=== PATIENT | female | born 1990 | race Caucasian/White ===

== ENCOUNTER 2017-03-11 10:38 | Day surgery (SDC) | payer OTHER ==
[2017-03-11 12:13] VITALS: BMI 19.0
[2017-03-11 13:43] VITALS: TEMP 97.5
[2017-03-11 14:25] VITALS: BP 104/64; PULSE 68
[2017-03-11 15:21] LABS: ALBUMIN 3.9 g/dl (3.4-5.0); BILIRUBIN,DIRECT 0.1 mg/dL (0.0-0.2); BILIRUBIN,TOTAL 0.6 mg/dL (0.2-1.0); TOT PROT 6.9 g/dl (6.4-8.2)
--- NOTE | 2017-03-13 12:10 | PATH ---
Surgical Pathology Report Patient Name: NERISSA HATFIELD [facility]. Rec. #: [id number] /Age/Gender: 1990 (Age: 26) / F Account: [id number] Location: U-ENDOSCOPY Taken: 03/11/2017 Received: 03/12/2017 Reported: 03/13/2017 Physicians: Abdi Gonzalez D.O. Specimen(s) Received A: BX TRANSVERSE B: BX LEFT COLON Clinical History Diarrhea r/o microscopic colitis Final Diagnosis A. COLON, TRANSVERSE, BIOPSY: COLONIC MUCOSA WITH LAMINA PROPRIA EDEMA AND REACTIVE LYMPHOID AGGREGATE. NO EVIDENCE OF ACTIVE INFLAMMATION, SIGINIFICANT ARCHITECTURAL DISTORTION, GRANULOMATA OR DYSPLASIA; NO EVIDENCE OF MICROSCOPIC COLITIS. B. COLON, LEFT, BIOPSY: COLONIC MUCOSA WITH LAMINA PROPRIA EDEMA AND REACTIVE LYMPHOID AGGREGATE. NO EVIDENCE OF ACTIVE INFLAMMATION, SIGINIFICANT ARCHITECTURAL DISTORTION, GRANULOMATA OR DYSPLASIA; NO EVIDENCE OF MICROSCOPIC COLITIS. Electronically Signed Jarrett Virgen M.D. Gross Description A. Received in formalin, labeled "biopsy transverse colon" are 2 doyle, irregular portions of soft tissue averaging 0.1 cm in greatest dimension. The specimens are submitted in toto in one cassette. B. Received in formalin, labeled "biopsy left colon" are 2 doyle, irregular portions of soft tissue averaging 0.2 cm in greatest dimension. The specimens are submitted in toto in one cassette. 03/12/201703/12/2017
[2017-03-13 16:30] LABS: SMOOTH MUSCLE AB 25 Units (0-19)
== END 2017-03-11 14:34 | disposition home or self-care (01) ==
LOC: JASU-ENDO 10:38
PROVIDERS: ATTEND Internal Medicine Gastroenterology
PROC: 0DBL8ZX Excision of Transverse Colon, Via Natural or Artificial Opening Endoscopic, Diagnostic (ICD-10-PCS; principal; 2017-03-11 11:00)
DX: R19.7 Diarrhea, unspecified (principal); K64.8 Other hemorrhoids
CPT/HCPCS: 36415; 80076; 82390; 83516; 84703; 86038; 88305-TC

== ENCOUNTER 2017-04-08 22:28 | Emergency (ER) | payer OTHER ==
[2017-04-08 23:03] VITALS: BP 107/66; PULSE 83; TEMP 98.6; BMI 19.9
== END 2017-04-09 01:15 | disposition left against medical advice (07) ==
LOC: JER 22:28 → SUPCPDRO 22:28 → JER 04-09 01:15
DX: Z53.21 Procedure and treatment not carried out due to patient leaving prior to being seen by health care provider (principal)
CPT/HCPCS: 99281-25

== ENCOUNTER 2017-11-23 09:25 | Inpatient (IN) | payer OTHER ==
[2017-11-23] MEDS: ELECTROLYTE-148 SOLN 1,000 ML IV SCH ×2 (09:45→11:30)
--- NOTE | 2017-11-23 10:23 | HP ---
Past Medical History - Primary Care Physician PCP:: Patricia Amin - Admission Chief Complaint: 27yo P0 @ 38.4 wks with LOF 8:15am today and regular painful contructions, no VB, + FM History of Present Illness: 1. Short cervix during , s/p Betamethasone 09/30/17, s/p Progesterone suppository 2. Medulary sponge kidneys, h/o Kidney stones, none in 3. IBS on meds prior to 4. 2014 D&C for Endometrial polyp 5. 2014 LSC for rupture ovarian cyst 6. h/o Colon polyps 7. Anemia, Vitamin B12 deficiency History Source: Patient Limitations to Obtaining History: No Limitations - Past Medical History Gastrointestinal: Yes: Irritable Bowel Disease, Other (Colon polyps, followed by GI) Renal/: Yes: Renal Calculi Reproductive: Yes: Polycystic Ovary Syndrome, Other (Endometrial polyps Ovarian Cysts Abnormal PAP) ...: 1 ...EDC by Dates: 12/03/17 Additional OB History: Short cervix, s/p Progesterone suppositories and Betamethasone Heme/Onc: Yes: B12 Deficiency - Past Surgical History Past Surgical History: Yes: Cystectomy Hx Myomectomy: No Hx Transabdominal Cerclage: No Additional Surgical History: Polypectomy, D&C - Smoking History Smoking history: Never smoked Have you smoked in the past 12 months: No Aproximately how many cigarettes per day: 0 - Alcohol/Substance Use Hx Alcohol Use: No History of Substance Use: reports: None Home Medications - Allergies Allergies/Adverse Reactions: Allergies Allergy/AdvReac Type Severity Reaction Status Date / Time strawberry Allergy Mild Verified 10/03/17 09:02 milk Allergy Verified 10/03/17 09:02 - Home Medications Home Medications: Ambulatory Orders Albuterol Sulfate Inhaler - [Ventolin HFA Inhaler -] 2 inh PO Q4H PRN 03/11/17 B-12 1 tab PO DAILY 09/02/17 Iron 1 tab PO DAILY 09/02/17 Vitamins (Sjr) - 1 tab PO DAILY 09/02/17 Progesterone, Micronized [Progesterone] 100 mg VG DAILY 10/03/17 Review of Systems - Review of Systems Constitutional: reports: No Symptoms Eyes: reports: No Symptoms HENT: reports: No Symptoms Neck: reports: No Symptoms Cardiovascular: reports: No Symptoms Respiratory: reports: No Symptoms Gastrointestinal: reports: No Symptoms Genitourinary: reports: No Symptoms, Other (Leackage of fluid, contructions) Breasts: reports: No Symptoms Reported Musculoskeletal: reports: No Symptoms Integumentary: reports: No Symptoms Neurological: reports: No Symptoms Endocrine: reports: No Symptoms Hematology/Lymphatic: reports: No Symptoms Psychiatric: reports: No Symptoms Physical Exam - Maternity Constitutional: Yes: Well Nourished Eyes: Yes: WNL HENT: Yes: WNL Neck: Yes: WNL, Supple, Trachea Midline Cardiovascular: Yes: WNL, Regular Rate and Rhythm Lungs: Clear to auscultation Breast(s): Yes: WNL - Abdominal Exam/OB Fundal Height: 38 (EFW 7.5lb) Number of Fetuses: Single Presentation: Vertex Contractions: Yes Regularity: Regular (Q5-6min) Intensity: Mild/Mod Monitor Mode: External Heart Rate (range): 140 Heart Rate Location: Midline Category: I Accelerations: Uniform Decelerations: None - Vaginal Exam/OB Vaginal Bleediing: No Speculum Exam: No (Grosely ruptured, Nitrazine positive) Dilatation (cm): 5-6cm Effacement (%): 100 Amniotic Membrane Status: Ruptured Nitrazine Test: Positive Amniotic Fluid: Yes: Clear Meconium: Light Presentation: Vertex/Position Station: -1 - Physical Exam Musculoskeletal: Yes: WNL Extremities: Yes: WNL Edema: No Integumentary: Yes: WNL Deep Tendon Reflex Grade: Normal +2 ...Motor Strength: WNL Psychiatric: Yes: WNL Assessment/Plan 27yo P0 @ 38.4 wks with PROM in labor Admit to L&D Admit labs GBS negative, no need for prophylaxis Pain management for Epidural MF status reassuring anticipate
[2017-11-23] MEDS ORDERED: FENTANYL/BUPIVACAINE/NS/PF - PCEA - 50 ML DISP.SYRIN EP ONE (10:30)
[2017-11-23 10:55] LABS: BASO % 0.2 % (0-2.0); EOS % 0.3 % (0-4.5); HEMATOCRIT 34.4 % (32.4-45.2); HEMOGLOBIN 11.2 GM/dL (10.7-15.3); LYMPH % 6.8 % (8-40); MCH 29.7 pg (25.7-33.7); MCHC 32.6 g/dl (32.0-36.0); MEAN CELL VOLUME 91.2 fl (80-96); MEAN PLT VOLUME 11.3 fl (7.5-11.1); MONO % 6.1 % (3.8-10.2); NEUT % 86.6 % (42.8-82.8); PLATELET COUNT 118 K/MM3 (134-434); RBC 3.77 M/mm3 (3.60-5.2); RDW 14.3 % (11.6-15.6); WHITE BLOOD COUNT 15.1 K/mm3 (4.0-10.0)
[2017-11-23 11:14] LABS: CALCIUM 8.1 mg/dL (8.5-10.1); CHLORIDE 107 mmol/L (98-107); POTASSIUM 3.6 mmol/L (3.5-5.1); PROTHROMBIN TIME (PATIENT) 11.3 SEC (9.98-11.88); SODIUM 138 mmol/L (136-145)
[2017-11-23 11:17] LABS: ACTIVATED PTT 28.2 SECONDS (26.9-34.4)
[2017-11-23 11:18] LABS: ANION GAP 9 (8-16); BLOOD UREA NITROGEN 6 mg/dL (7-18); CO2 22 mmol/L (21-32); CREATININE 0.4 mg/dL (0.55-1.02); GLUCOSE,RANDOM 73 mg/dL (74-106)
[2017-11-23] MEDS ORDERED: NALOXONE HCL 0.4 MG/ML VIAL IVPUSH PRN (11:23)
--- NOTE | 2017-11-23 11:26 | PN ---
Progress Note, Labor Vaginal Exam #1 Labor Exam Date: 11/23/17 Labor Exam Time: 11:20 Heart Rate (range): 140's +accels, no decells Dilatation: 8 Effacement (%): 100 Amniotic Membrane Status: Ruptured Presentation: Vertex/Position Station: -1 Remarks: 27yo P0 @ 38.4wks in active labor Now s/p Epidural frequent ctx, MF status reassuring continue monitoring progress of labor
[2017-11-23] MEDS ORDERED: FENTANYL/BUPIVACAINE/NS/PF - PCEA - 50 ML DISP.SYRIN EP SCH (11:30)
[2017-11-23 11:49] VITALS: BMI 19.5
[2017-11-23 12:24] LABS: ALBUMIN 2.6 g/dl (3.4-5.0); ALK PHOS 154 U/L (45-117); BILIRUBIN,DIRECT < 0.2 mg/dL (0.0-0.2); BILIRUBIN,TOTAL 0.4 mg/dL (0.2-1.0); SGOT/AST 19 U/L (15-37); SGPT/ALT 17 U/L (12-78); TOT PROT 6.1 g/dl (6.4-8.2)
[2017-11-23] MEDS ORDERED: LIDOCAINE HCL 1% PRESERVATIVE FREE - 30ML VIAL ONE (15:36)
[2017-11-23] MEDS ORDERED: BISACODYL 10 MG SUPP.RECT RC PRN (16:03)
[2017-11-23] MEDS ORDERED: METHYLERGONOVINE MALEATE 0.2 MG/1 ML AMP IM PRN (16:03)
[2017-11-23] MEDS ORDERED: WITCH HAZEL 50% (TUCKS) 40 PAD/JAR PAD TP PRN (16:03)
--- NOTE | 2017-11-23 16:03 | PN ---
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
[2017-11-23] MEDS ORDERED: D5W-LR W/ 20 UNITS OXYTOCIN 20 UNIT/1,000 ML INFUS.BAG IV SCH (16:15)
[2017-11-23] MEDS: IBUPROFEN 600 MG TABLET (FP) PO PRN (16:16)
[2017-11-23] MEDS: ACETAMINOPHEN 325 MG TABLET (FP) PO PRN ×2 (16:17→22:52)
[2017-11-23 16:18] LABS: HEMATOCRIT 35.8 % (32.4-45.2); HEMOGLOBIN 11.7 GM/dL (10.7-15.3); MCH 29.9 pg (25.7-33.7); MCHC 32.5 g/dl (32.0-36.0); MEAN CELL VOLUME 92.1 fl (80-96); MEAN PLT VOLUME 11.8 fl (7.5-11.1); PLATELET COUNT 118 K/MM3 (134-434); RBC 3.89 M/mm3 (3.60-5.2); RDW 14.5 % (11.6-15.6); WHITE BLOOD COUNT 20.6 K/mm3 (4.0-10.0)
[2017-11-23 16:39] LABS: PLATELET ESTIMATE DECREASED
[2017-11-23] MEDS: BENZOCAINE 20% 57 GM BOTTLE TP PRN (18:06)
[2017-11-23] MEDS: BENZOCAINE 28 GM HEMORRHOIDAL OINTMENT TP PRN (18:06)
[2017-11-23] MEDS: KETOROLAC TROMETHAMINE 30 MG/1 ML VIAL IVPB SCH (21:17)
[2017-11-23] MEDS: LIDOCAINE HCL 2% JELLY (5 ML/TUBE) TP PRN (21:22)
[2017-11-23] MEDS: FERROUS SO4 325 MG TABLET (FP) PO SCH (22:52)
[2017-11-23] MEDS: SENNOSIDES/DOCUSATE COMBO (SENNA PLUS) TABLET (UD) PO PRN (22:52)
[2017-11-24] MEDS: ACETAMINOPHEN 325 MG TABLET (FP) PO PRN ×3 (03:18→21:21)
[2017-11-24 07:57] LABS: BASO % 0.1 % (0-2.0); EOS % 0.4 % (0-4.5); HEMATOCRIT 31.3 % (32.4-45.2); HEMOGLOBIN 10.1 GM/dL (10.7-15.3); MCH 29.7 pg (25.7-33.7); MCHC 32.4 g/dl (32.0-36.0); MEAN CELL VOLUME 91.7 fl (80-96); MONO % 6.2 % (3.8-10.2); NEUT % 87.3 % (42.8-82.8); PLATELET COUNT 108 K/MM3 (134-434); RBC 3.42 M/mm3 (3.60-5.2); RDW 14.6 % (11.6-15.6); WHITE BLOOD COUNT 18.4 K/mm3 (4.0-10.0)
[2017-11-24] MEDS: KETOROLAC TROMETHAMINE 30 MG/1 ML VIAL IVPB SCH (08:53)
--- NOTE | 2017-11-24 09:21 | PN ---
Post Progress Note - Subjective Subjective: Pt is c/o pain in perineal area Post Day: 1 Type of Delivery: Vital Signs: Vital Signs Temperature 98.4 F 11/24/17 05:21 Pulse Rate 84 11/24/17 05:21 Respiratory Rate 18 11/24/17 05:21 Blood Pressure 90/64 11/24/17 05:21 O2 Sat by Pulse Oximetry (%) 100 11/23/17 16:00 Breast Exam: Yes: Soft Uterus: Yes: Fundus Firm, Fundus below umbilicus, Non-tender Abdomen/GI: Yes: Abdomen soft, Passing flatus, Tolerating PO Lochia: Yes: Rubra Lochia, amount: Small Extremities: Yes: Calves non-tender, Edema (bilat, 1+) Perineum: Yes: Laceration (repair intact) Activity: Other (in bed, ) - Labs Labs: CBC WBC 18.4 K/mm3 (4.0-10.0) H 11/24/17 06:30 RBC 3.42 M/mm3 (3.60-5.2) L 11/24/17 06:30 Hgb 10.1 GM/dL (10.7-15.3) L D 11/24/17 06:30 Hct 31.3 % (32.4-45.2) L 11/24/17 06:30 MCV 91.7 fl (80-96) 11/24/17 06:30 MCH 29.7 pg (25.7-33.7) 11/24/17 06:30 MCHC 32.4 g/dl (32.0-36.0) 11/24/17 06:30 RDW 14.6 % (11.6-15.6) 11/24/17 06:30 Plt Count 108 K/MM3 (134-434) L 11/24/17 06:30 MPV 11.0 fl (7.5-11.1) 11/24/17 06:30 Total Counted 100 11/23/17 16:05 Neutrophils % 87.3 % (42.8-82.8) H 11/24/17 06:30 Neutrophils % (Manual) 88.0 % (42.8-82.8) H 11/23/17 16:05 Lymphocytes % 6.0 % (8-40) L 11/24/17 06:30 Lymphocytes % (Manual) 9.0 % (8-40) 11/23/17 16:05 Monocytes % 6.2 % (3.8-10.2) 11/24/17 06:30 Monocytes % (Manual) 3 % (3.8-10.2) L 11/23/17 16:05 Eosinophils % 0.4 % (0-4.5) 11/24/17 06:30 Basophils % 0.1 % (0-2.0) 11/24/17 06:30 Platelet Estimate Decreased 11/23/17 16:05 Platelet Comment No clumping noted 11/23/17 16:05 Assessment/Plan 27 yo P1 s/p , doing well stable, afebrile. care instructions reviewed. Continue routine care. Ambulation encouraged Discharge instruction reviewed.
[2017-11-24] MEDS ORDERED: DOCUSATE SODIUM 100 MG CAPSULE (FP) PO PRN (09:23)
[2017-11-24] MEDS ORDERED: ALBUTEROL SO4 18 GM HFA INHALER IH PRN (09:25)
--- NOTE | 2017-11-24 09:28 | DS ---
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 Vital Signs: Vital Signs Temperature 98.3 F 11/24/17 09:19 Pulse Rate 89 11/24/17 09:19 Respiratory Rate 20 11/24/17 09:19 Blood Pressure 107/74 11/24/17 09:19 O2 Sat by Pulse Oximetry (%) 100 11/23/17 16:00 Constitutional: Yes: Well Nourished, No Distress, Calm Eyes: Yes: WNL, Conjunctiva Clear HENT: Yes: WNL, Atraumatic, Normocephalic Neck: Yes: WNL, Supple, Trachea Midline Cardiovascular: Yes: WNL, Regular Rate and Rhythm Respiratory: Yes: WNL, Regular, CTA Bilaterally Gastrointestinal: Yes: WNL, Normal Bowel Sounds, Soft ...Rectal Exam: Yes: Deferred Renal/: Yes: WNL Pelvis: Yes: WNL Internal Exam Deferred: Yes ....Post : Yes: Uterus firm, Uterus non-tender, Slight lochia rubra Breast(s): Yes: WNL Musculoskeletal: Yes: WNL Extremities: Yes: WNL Edema: Yes Edema: LLE: 1+, RLE: 1+ Integumentary: Yes: WNL Neurological: Yes: WNL, Alert, Oriented ...Motor Strength: WNL Psychiatric: Yes: WNL, Alert, Oriented Labs: CBC, BMP 11/24/17 06:30 11/23/17 10:44 Delivery - Delivery Vaginal Delivery: No Problems Type of Anesthesia: Epidural Episiotomy/Laceration: Midline, 2nd degree EBL (cc): 300 Delivery, Single - Stages of Labor Date 1st Stage Initiatied: 11/23/17 Time 1st Stage Initiated: 08:00 Date 2nd Stage Initiated: 11/23/17 Time 2nd Stage Initiated: 14:00 Date of Delivery: 11/23/17 Time of Delivery: 15:36 Time Placenta Delivered: 15:40 Placenta: Yes: Spontaneous - Condition of Signal Timer/Hemmer Chainstitch Present: Yes Gender: Female Weight: 3.175 kg Position: Right, OA Total Hours ROM (Hrs/Mins): 7hr 21min - 1 Minute Total Score: 9 5 Minutes Total Score: 9 - Feeding Plan Initial Plan: Elected not to breastfeed exclusively throughout hospitalization Benefits of Exclusively reinforced: Yes Discharge Summary Reason For Visit: LABOR Spont labor Procedures: Principal: Other Procedures: Repair 2nd degree perineal laceration Hospital Course: Normal recovery Asymptomatic for anemia Condition: Good - Instructions Diet, Activity, Other Instructions: Physical activity Resume your normal everyday activity as tolerated no heavy lifting or exercise until seen by your surgeon. You may walk unlimited fady of and climb stairs. You may resume driving the car when you feel safe and comfortable behind the wheel. No sexual activity as instructed. Wound care If you have a bandage, leave it on, and keep dry for 48-72 hours. After that time discard the outer bandage. If they are tapes on the skin under the out of bandage leave them in place. They will peel off in the next 7 to 10 days. Do Not Peel them off. You may shower the day after surgery. If there are tapes present on the skin, you may shower over them. Diet There are no dietary restrictions. Eat healthy, high-fiber foods. Drink 6 to 8 glasses of liquid each day. This will assist in keeping your bowels are regular. Pain management You may take Tylenol or acetaminophen or Ibuprofen (for example, Motrin, Advil etc.) from my pain prescription medication is ordered should be taken as prescribed for moderate to severe pain. Call MD for any of the following: Severe pain not relieved by medication Fever of 101 or higher Excessive bleeding or drainage on dressing Inability to urinate Referrals: Marquise Canales MD [Staff Physician] - Disposition: HOME - Home Medications Comprehensive Discharge Medication List: Ambulatory Orders Albuterol Sulfate Inhaler - [Ventolin HFA Inhaler -] 2 inh PO Q4H PRN 03/11/17 B-12 1 tab PO DAILY 09/02/17 Iron 1 tab PO DAILY 09/02/17 Vitamins (Sjr) - 1 tab PO DAILY MDD 1 09/02/17
[2017-11-24] MEDS: FERROUS SO4 325 MG TABLET (FP) PO SCH ×2 (10:06→21:20)
[2017-11-24] MEDS: PRENATAL VITAMINS W/ FOLIC ACID TABLET (FP) PO SCH (10:06)
[2017-11-24] MEDS: oxyCODONE HCL 5 MG TABLET PO PRN ×2 (15:11→21:21)
[2017-11-24] MEDS: BENZOCAINE 20% 57 GM BOTTLE TP PRN (20:06)
[2017-11-24] MEDS: ELECTROLYTE-148 SOLN 1,000 ML IV SCH (20:23)
[2017-11-24] MEDS: SENNOSIDES/DOCUSATE COMBO (SENNA PLUS) TABLET (UD) PO PRN (21:20)
[2017-11-24] MEDS: IBUPROFEN 600 MG TABLET (FP) PO PRN (21:20)
[2017-11-24] MEDS: BENZOCAINE 28 GM HEMORRHOIDAL OINTMENT TP PRN (21:22)
[2017-11-24] MEDS ORDERED: DIPHTH,PERTUSS(ACELL),TET 0.5 ML DISP.SYRIN IM ONE (21:41)
[2017-11-25 07:39] VITALS: BP 122/78; PULSE 92; TEMP 98.7
--- NOTE | 2017-11-25 07:57 | PN ---
Post Progress Note - Subjective Subjective: 27yo P1 now s/p and 2degree laceration still feels pain on perineum Post Day: 2 Type of Delivery: Vital Signs: Vital Signs Temperature 98.7 F 11/25/17 07:00 Pulse Rate 92 H 11/25/17 07:00 Respiratory Rate 20 11/25/17 07:00 Blood Pressure 122/78 11/25/17 07:00 O2 Sat by Pulse Oximetry (%) 100 11/23/17 16:00 Breast Exam: Yes: Soft Uterus: Yes: Fundus Firm Abdomen/GI: Yes: Abdomen soft Lochia: Yes: Rubra Lochia, amount: Small Extremities: Yes: Calves non-tender Perineum: Yes: Intact (no hematoma, well healing episotomy) Activity: Ambulating - Labs Labs: CBC WBC 18.4 K/mm3 (4.0-10.0) H 11/24/17 06:30 RBC 3.42 M/mm3 (3.60-5.2) L 11/24/17 06:30 Hgb 10.1 GM/dL (10.7-15.3) L D 11/24/17 06:30 Hct 31.3 % (32.4-45.2) L 11/24/17 06:30 MCV 91.7 fl (80-96) 11/24/17 06:30 MCH 29.7 pg (25.7-33.7) 11/24/17 06:30 MCHC 32.4 g/dl (32.0-36.0) 11/24/17 06:30 RDW 14.6 % (11.6-15.6) 11/24/17 06:30 Plt Count 108 K/MM3 (134-434) L 11/24/17 06:30 MPV 11.0 fl (7.5-11.1) 11/24/17 06:30 Total Counted 100 11/23/17 16:05 Neutrophils % 87.3 % (42.8-82.8) H 11/24/17 06:30 Neutrophils % (Manual) 88.0 % (42.8-82.8) H 11/23/17 16:05 Lymphocytes % 6.0 % (8-40) L 11/24/17 06:30 Lymphocytes % (Manual) 9.0 % (8-40) 02/25/18 16:05 Monocytes % 6.2 % (3.8-10.2) 11/24/17 06:30 Monocytes % (Manual) 3 % (3.8-10.2) L 11/23/17 16:05 Eosinophils % 0.4 % (0-4.5) 11/24/17 06:30 Basophils % 0.1 % (0-2.0) 11/24/17 06:30 Platelet Estimate Decreased 11/23/17 16:05 Platelet Comment No clumping noted 11/23/17 16:05 Assessment/Plan 27yo P1 s/p Doing well, Afebrile VSS, H/H stable, WBC appropriately decreasing Platelets increasing Lidocaine gel to perineum Instructed nothing vaginally for 6wks Return to the office in 4wks, or as needed D/C home
[2017-11-25 09:01] LABS: BASO % 0.2 % (0-2.0); EOS % 1.4 % (0-4.5); HEMATOCRIT 30.8 % (32.4-45.2); LYMPH % 8.9 % (8-40); MCH 30.1 pg (25.7-33.7); MCHC 32.5 g/dl (32.0-36.0); MEAN CELL VOLUME 92.5 fl (80-96); MEAN PLT VOLUME 10.8 fl (7.5-11.1); MONO % 5.2 % (3.8-10.2); NEUT % 84.3 % (42.8-82.8); PLATELET COUNT 127 K/MM3 (134-434); RBC 3.32 M/mm3 (3.60-5.2); RDW 14.7 % (11.6-15.6); WHITE BLOOD COUNT 13.5 K/mm3 (4.0-10.0)
[2017-11-25] MEDS: FERROUS SO4 325 MG TABLET (FP) PO SCH (09:13)
[2017-11-25] MEDS: PRENATAL VITAMINS W/ FOLIC ACID TABLET (FP) PO SCH (09:13)
[2017-11-25] MEDS: IBUPROFEN 600 MG TABLET (FP) PO PRN (09:18)
[2017-11-25] MEDS: LIDOCAINE HCL 2% JELLY (5 ML/TUBE) TP PRN (09:38)
== END 2017-11-25 11:55 | disposition home or self-care (01) | DRG 560 ==
LOC: JLDR 09:25 → J3W 17:48
PROVIDERS: ADMIT Obstetrics & Gynecology; ATTEND Obstetrics & Gynecology
PROC: 0KQM0ZZ Repair Perineum Muscle, Open Approach (ICD-10-PCS; principal; 2017-11-23)
DX: O99.02 Anemia complicating childbirth (principal); D64.9 Anemia, unspecified; O70.1 Second degree perineal laceration during delivery; Z3A.38 38 weeks gestation of pregnancy; Z37.0 Single live birth
CPT/HCPCS: 36415; 59409; 80048; 80076; 85025; 85610; 85730; 86593; 86850; 86900; 86901; 90715

== ENCOUNTER 2018-04-17 17:47 | Emergency (ER) | payer OTHER ==
--- NOTE | 2018-04-17 19:00 | PDOC ---
Rapid Medical Evaluation Time Seen by Provider: 04/17/18 18:43 Medical Evaluation: Allergies Allergy/AdvReac Type Severity Reaction Status Date / Time strawberry Allergy Mild Verified 10/03/17 09:02 milk Allergy Verified 10/03/17 09:02 04/17/18 18:55 Pt reports having blood and mucous with bowel movements for the past 4 days. Pt states she has been having diarrhea. Reports diffuse abdominal pain. Denies traveling. Reports being unable to eat or drink d.t the pain and diarrhea. States that eating makes the pain worse. Denies fevers, chills, vomiting, nausea , frequency, urgency and hematuria. Exam: Tender to the abdomen in all quadrants. AAOX3, breathing easily Orders: Labs, urine Pt to proceed to the ED for further evaluation. Discharge Disposition - Diagnosis Abdominal pain - Referrals - Patient Instructions - Post Discharge Activity
[2018-04-17 19:01] VITALS: BP 128/73; PULSE 76; TEMP 98.3; BMI 21.2
--- NOTE | 2018-04-17 20:31 | PDOC ---
History of Present Illness - General Chief Complaint: Diarrhea Stated Complaint: STOMACH PAIN Time Seen by Provider: 04/17/18 18:43 History Source: Patient Exam Limitations: No Limitations - History of Present Illness Initial Comments: Pt, with PMH of mixed-type IBS and rectal polyps, presents with diffuse abdominal pain and bloody BM over the past 4 days. The pt states about 4 days ago, she noticed orange and red "fatty-looking" droplets in her stool. She then had profuse diarrhea over the following days (6-8 episodes per day). She has not been tolerating food or fluids over the past 2 days, and is now passing only bloody mucus. She has been taking dicylcomine and hyoscyamine (her usual IBS medication) as well as Immodium 2 days ago, but that has not helped with the diarrhea. She denies fevers/chills, nausea/vomiting, jaundice, and joint pain. The pt has been seen by Dr. Correa for polyp follow-up (colonoscopy every 3 years) and has been seen for work-up for decreased ceruloplasmin (Bryant's vs autoimmune hepatitis). Her LMP was 1 month ago and she takes the depo shot consistently. 04/17/18 22:52 Past History - Travel Traveled outside of the country in the last 30 days: No Close contact w/someone who was outside of country & ill: No - Past Medical History Allergies/Adverse Reactions: Allergies Allergy/AdvReac Type Severity Reaction Status Date / Time strawberry Allergy Mild Verified 04/17/18 18:57 milk Allergy Verified 04/17/18 18:57 Home Medications: Ambulatory Orders Albuterol Sulfate Inhaler - [Ventolin HFA Inhaler -] 2 inh PO Q4H PRN 03/11/17 B-12 1 tab PO DAILY 09/02/17 Iron 1 tab PO DAILY 09/02/17 Vitamins (Sjr) - 1 tab PO DAILY MDD 1 09/02/17 Lidocaine 2% Jelly [Xylocaine 2% Jelly -] 1 applic TP BID PRN #1 tube 11/25/17 Asthma: Yes (Mild asthma last attack unknown) Cancer: No Cardiac Disorders: No COPD: No Diabetes: No GI Disorders: Yes (mixed-type IBS, polyps) HTN: No Seizures: No Thyroid Disease: No - Reproductive History (#): 1 - Suicide/Smoking/Psychosocial Hx Smoking Status: No Smoking History: Never smoked Have you smoked in the past 12 months: No Number of Cigarettes Smoked Daily: 0 Hx Alcohol Use: No Drug/Substance Use Hx: No Substance Use Type: None Hx Substance Use Treatment: No Review of Systems - Review of Systems Able to Perform ROS?: Yes Is the patient limited Divehi proficient: No Constitutional: Yes: Loss of Appetite (Decreased intake PO fluid & foods due to diarrhea), Weight Stable. No: Chills, Fever, Night Sweats HEENTM: No: Recent change in vision, Difficulty Swallowing Respiratory: No: Cough, Orthopnea, Shortness of Breath, Productive cough Cardiac (ROS): No: Chest Pain, Edema, Irregular Heart Rate, Lightheadedness, Palpitations, Syncope ABD/GI: Yes: Blood Streaked Bowels, Diarrhea (diarrhea and bloody mucus x4 days) , Poor Appetite, Poor Fluid Intake, Rectal Bleeding, Abdominal cramping ( diffuse abdominal cramps, not relieved by BM). No: Abdominal Distended, Abd. Pain w/ defecation, Constipated, Nausea, Vomiting, Indigestion : No: Burning, Dysuria, Frequency, Flank Pain Musculoskeletal: No: Back Pain, Joint Pain, Joint Swelling Integumentary: No: Bruising, Rash Neurological: No: Headache, Weakness, Dizziness Psychiatric: Yes: Change in Appetite Endocrine: No: Change in Weight Hematologic/Lymphatic: No: Anemia, Easy Bleeding, Swollen Glands All Other Systems: Reviewed and Negative *Physical Exam - Vital Signs Last Vital Signs Temp Pulse Resp BP Pulse Ox 98.3 F 76 16 128/73 99 04/17/18 18:59 04/17/18 18:59 04/17/18 18:59 04/17/18 18:59 04/17/18 18:59 - Physical Exam General Appearance: Yes: Nourished, Appropriately Dressed, Thin. No: Apparent Distress HEENT: positive: EOMI, Normal ENT Inspection, Normal Voice, Symmetrical, Pharynx Normal, Hearing Grossly Normal Neck: positive: Trachea midline, Normal Thyroid, Supple. negative: Tender, Rigid, Lymphadenopathy (R), Lymphadenopathy (L) Respiratory/Chest: positive: Lungs Clear, Normal Breath Sounds. negative: Chest Tender, Respiratory Distress, Accessory Muscle Use, Wheezing Cardiovascular: positive: Regular Rhythm, Regular Rate, S1, S2. negative: Edema , JVD, Murmur Vascular Pulses: Dorsalis-Pedis (R): 4+, Doralis-Pedis (L): 4+ Gastrointestinal/Abdominal: positive: Normal Bowel Sounds, Flat, Soft. negative : Tender (no tenderness to palpation), Organomegaly, Pulsatile Mass, Distended, Guarding, Rebound Rectal Exam: positive: heme negative stool (no gross blood on rectal exam, clear mucus present.), hemorrhoids (external hemorrhoids noted. ) Lymphatic: negative: Adenopathy, Tenderness Musculoskeletal: positive: Normal Inspection. negative: CVA Tenderness Extremity: positive: Normal Capillary Refill, Normal Inspection, Normal Range of Motion, Pelvis Stable. negative: Tender Integumentary: positive: Normal Color, Dry, Warm. negative: Jaundice, Bruising Neurologic: positive: song writer II-XII NML intact, Fully Oriented, Alert, Normal Mood/ Affect, Normal Response, Motor Strength 01/31 ED Treatment Course - LABORATORY CBC & Chemistry Diagram: 04/17/18 22:00 04/17/18 22:00 Medical Decision Making - Medical Decision Making Pt seen, stable and able to sit up in bed. Labs ordered by triage. Will move pt to private room for rectal exam/stool sample. 04/17/18 20:59 Pt comfortable, attempting IV placement for labs. Will perform rectal and obtain stool sample. 04/17/18 21:[address] Carlos (GI) religious education teacher for Dr. Correa. Pt and Dr. Carlos agreeable to follow-up outpatient with stool samples. Rectal exam negative for gross blood , pt unable to give stool sample at this time. CBC and CMP shows monocytic predominance (expected for IBS/IBD), no increased WBC. 04/17/18 23:36 *DC/Admit/Observation/Transfer Diagnosis at time of Disposition: Diarrhea Qualifiers: Diarrhea type: unspecified type Qualified Code(s): R19.7 - Diarrhea, unspecified Abdominal pain Qualifiers: Abdominal location: generalized Qualified Code(s): R10.84 - Generalized abdominal pain - Discharge Dispostion Disposition: HOME Condition at time of disposition: Improved Decision to Admit order: No - Referrals Referrals: Jhon Bond MD [Primary Care Provider] - Jhon Gonzalez DO [Staff Physician] - - Patient Instructions Printed Discharge Instructions: DI for Diarrhea and Traveler's Diarrhea -- Adult, DI for Irritable Bowel Syndrome Additional Instructions: Please follow-up with Dr. Gonzalez within the next few days to provide stool samples and receive additional testing for your diarrhea. Please continue to take fluids and food as tolerated. Please return for any development of fevers or chills, worsening abdominal pain or rectal bleeding, or any other concerns. - Post Discharge Activity
--- NOTE | 2018-04-17 21:02 | PDOC ---
Attending Attestation - HPI HPI: 04/17/18 23:18 The patient is a 27 year old female, with a significant PMH of mixed-type IBS and rectal polyps, who presents to the emergency department with 4 days of diffuse abdominal pain and bloody bowel movements. The patient states she has been having approx 6-8 episodes of diarrhea per day over the past 4 days. The patient states she has had a decreased appetite secondary to the diarrhea episodes and has now been passing only bloody mucus. The patient reports taking Immodium for the diarrhea with minimal relief and her IBS medications dicyclomine and hyoscyamine. The patient states she called her GI doctor Dr. Gonzalez who advised the patient to come to the ED. The patient denies chest pain, shortness of breath, headache and dizziness. Denies fever, chills, nausea, vomit and constipation. Denies dysuria, frequency, urgency and hematuria. Allergies: strawberry, milk <Aleksey Barraza - Last Filed: 04/17/18 23:18> - Resident Resident Name: Juli Castro - ED Attending Attestation I have performed the following: I have examined & evaluated the patient, The case was reviewed & discussed with the resident, I agree w/resident's findings & plan - Physicial Exam PE: 04/18/18 00:08 Agree with resident exam - Medical Decision Making 04/18/18 00:08 Pt has guaiac negative stool. Unclear is she was ever bleeding. Labs normal. Pt will follow with her GI doc. She will collect a stool sample at home and follow with GI. Stable for d/c home. Exam normal. <Laurie Saunders - Last Filed: 04/18/18 00:09> Attestations - Attestations 04/17/18 23:19 Documentation prepared by Aleksey Barraza, acting as medical leader for Laurie Saunders MD. <Aleksey Barraza - Last Filed: 04/17/18 23:18>
[2018-04-17 22:12] LABS: BASO % 0.5 % (0-2.0); EOS % 1.5 % (0-4.5); HEMATOCRIT 41.3 % (32.4-45.2); HEMOGLOBIN 13.7 GM/dL (10.7-15.3); MCH 28.9 pg (25.7-33.7); MEAN CELL VOLUME 87.4 fl (80-96); MEAN PLT VOLUME 11.5 fl (7.5-11.1); MONO % 11.8 % (3.8-10.2); NEUT % 54.2 % (42.8-82.8); PLATELET COUNT 156 K/MM3 (134-434); RBC 4.73 M/mm3 (3.60-5.2); RDW 12.4 % (11.6-15.6); WHITE BLOOD COUNT 4.9 K/mm3 (4.0-10.0)
[2018-04-17 22:18] LABS: HCG,QUALITATIVE URINE NEGATIVE
[2018-04-17 22:56] LABS: ANION GAP 9 (8-16); BLOOD UREA NITROGEN 12 mg/dL (7-18); CALCIUM 8.9 mg/dL (8.5-10.1); CHLORIDE 110 mmol/L (98-107); CO2 23 mmol/L (21-32); GLUCOSE,RANDOM 81 mg/dL (74-106); POTASSIUM 3.8 mmol/L (3.5-5.1); SGPT/ALT 38 U/L (12-78); SODIUM 142 mmol/L (136-145)
[2018-04-17 22:59] LABS: ALK PHOS 105 U/L (45-117); BILIRUBIN,TOTAL 0.5 mg/dL (0.2-1.0); CREATININE 0.7 mg/dL (0.55-1.02); SGOT/AST 20 U/L (15-37); TOT PROT 7.2 g/dl (6.4-8.2)
[2018-04-17 23:37] LABS: URINE APPEARANCE SLCLOUDY; URINE BILIRUBIN NEGATIVE (<2.0 mg/dL); URINE COLOR YELLOW; URINE GLUCOSE (UA) NEGATIVE (NEGATIVE); URINE KETONE NEGATIVE (NEGATIVE); URINE NITRITE NEGATIVE (NEGATIVE); URINE UROBILINOGEN NEGATIVE mg/dL (0.2-1.0)
[2018-04-17 23:39] LABS: URINE LEUK ESTERASE 1+ (NEGATIVE); URINE PROTEIN 1+ (NEGATIVE)
[2018-04-17 23:47] LABS: EPI CELLS FEW /HPF (FEW); URINE MUCUS MANY
== END 2018-04-18 00:25 | disposition home or self-care (01) ==
LOC: JER 17:47
DX: R19.7 Diarrhea, unspecified (principal); R10.84 Generalized abdominal pain; K58.2 Mixed irritable bowel syndrome; Z87.19 Personal history of other diseases of the digestive system
CPT/HCPCS: 36415; 80053; 81003; 81015; 82272; 84703; 85025; 87086; 99282-25

== ENCOUNTER 2018-07-27 09:19 | Emergency (ER) | payer OTHER ==
[2018-07-27 10:05] VITALS: TEMP 98.6; BMI 21.9
--- NOTE | 2018-07-27 10:06 | PDOC ---
History of Present Illness <Jay Man - Last Filed: 07/27/18 12:35> - General History Source: Patient - History of Present Illness Initial Comments: 07/27/18 10:23 The patient is a 27 year old female with a PMH of PCOS, pre-cancerous colon polyps, ? liver disease, presents to the ED c/o acute onset of RUQ pain. Pain is 8/10, "sharp" intermittent and localized to her RUQ and started this morning while she was driving. Endorses associated nausea w/o vomiting. Denies any fevers/chills. States she is being evaluated by a liver specialist for elevated LFTs and told she has some auto immune disease. States she is negative for hepatitis. No family h/o AI disease to patient's knowledge. Follows with GI for polyps which were discovered 10 years ago, and has had 2 colonscopies since that time. Patient also notes she had a TVUS on 07/15 as she was having some lower GI pain that has since resolved. LMP was in May 2018 and patient has since received the Depo shot. NKDA Surgical: laparatomy, Social: denies toxic habits PMD: Dr. Jhon Thomas ([facility]) <Marilynn Stanton - Last Filed: 07/27/18 14:45> - General Chief Complaint: Pain, Acute Stated Complaint: ABD PAIN Time Seen by Provider: 07/27/18 10:05 Past History <Jay Man - Last Filed: 07/27/18 12:35> - Past Medical History Asthma: Yes (Mild asthma last attack unknown) Cancer: No Cardiac Disorders: No CVA: No COPD: No Diabetes: No GI Disorders: Yes (mixed-type IBS, polyps) HTN: No Seizures: No Thyroid Disease: No - Reproductive History (#): 1 - Suicide/Smoking/Psychosocial Hx Smoking Status: No Smoking History: Never smoked Have you smoked in the past 12 months: No Number of Cigarettes Smoked Daily: 0 Information on smoking cessation initiated: No Hx Alcohol Use: No Drug/Substance Use Hx: No Substance Use Type: None Hx Substance Use Treatment: No <Marilynn Stanton - Last Filed: 07/27/18 14:45> - Past Medical History Allergies/Adverse Reactions: Allergies Allergy/AdvReac Type Severity Reaction Status Date / Time strawberry Allergy Mild Verified 07/27/18 10:00 milk Allergy Verified 07/27/18 10:00 Home Medications: Ambulatory Orders Phenobarb/Hyoscy/Atropine/Scop [ Tablet] 16.2 mg PO TID #6 tablet Review of Systems - Review of Systems Constitutional: No: Chills, Fever HEENTM: No: Blurred Vision, Double Vision Respiratory: No: Cough, Shortness of Breath Cardiac (ROS): No: Chest Pain, Lightheadedness, Palpitations, Syncope ABD/GI: Yes: Abdominal cramping. No: Constipated, Diarrhea, Nausea, Vomiting <Marilynn Stanton - Last Filed: 07/27/18 14:45> *Physical Exam - Vital Signs Last Vital Signs Temp Pulse Resp BP Pulse Ox 98.6 F 83 16 114/77 99 07/27/18 09:40 07/27/18 09:40 07/27/18 09:40 07/27/18 09:40 07/27/18 09:40 <Jay Man - Last Filed: 07/27/18 12:35> - Vital Signs Last Vital Signs Temp Pulse Resp BP Pulse Ox 98.6 F 83 16 114/77 99 07/27/18 09:40 07/27/18 09:40 07/27/18 09:40 07/27/18 09:40 07/27/18 09:40 - Physical Exam General Appearance: Yes: Nourished, Appropriately Dressed HEENT: positive: Normal Voice, Hearing Grossly Normal Neck: positive: Trachea midline, Supple Respiratory/Chest: positive: Lungs Clear, Normal Breath Sounds Cardiovascular: positive: S1, S2. negative: Edema, JVD Gastrointestinal/Abdominal: positive: Normal Bowel Sounds, Soft. negative: Guarding, Rebound, Tenderness, Hernia, Mass Musculoskeletal: negative: CVA Tenderness (R), CVA Tenderness (L) Extremity: positive: Normal Capillary Refill, Normal Inspection Integumentary: positive: Normal Color, Dry, Warm Neurologic: positive: Fully Oriented, Alert <Marilynn Stanton - Last Filed: 07/27/18 14:45> ED Treatment Course - LABORATORY CBC & Chemistry Diagram: 07/27/18 10:22 07/27/18 10:22 - ADDITIONAL ORDERS Additional order review: Laboratory Results 07/27/18 07/27/1807/27/18 10:22 10:22 10:22 Sodium 144 Potassium 3.9 Chloride 109 H Carbon Dioxide 26 Anion Gap 9 BUN 11 Creatinine 0.6 Creat Clearance w eGFR > 60 Random Glucose 88 Calcium 9.0 Total Bilirubin 0.6 AST 13 L ALT 23 Alkaline Phosphatase 110 Total Protein 7.5 Albumin 4.3 Lipase Cancelled 257 Urine HCG, Qual Negative 07/27/18 10:22 RBC 4.65 MCV 85.6 MCHC 33.3 RDW 13.1 MPV 10.5 Neutrophils % 56.3 Lymphocytes % 32.2 Monocytes % 9.6 Eosinophils % 1.1 Basophils % 0.8 - Medications Given in the ED: ED Medications Discontinued Medications Generic Name Dose Route Start Last Admin Trade Name Freq PRN Reason Stop Dose Admin Al Hydroxide/Mg Hydroxide 30 ml 07/27/18 10:26 07/27/18 10:46 Mylanta Suspension - PO 07/27/18 10:27 30 ml ONCE ONE Administration Famotidine/Sodium Chloride 20 mg in 50 mls @ 100 mls/hr 07/27/18 10:26 10:47 Pepcid 20 Mg Premixed Ivpb - IVPB 07/27/18 10:55 100 mls/hr ONCE ONE Administration Sodium Chloride 1,000 ml 07/27/18 10:25 07/27/18 10:46 Normal Saline - IV 07/27/18 10:26 1,000 ml ONCE ONE Administration <Jay Man - Last Filed: 07/27/18 12:35> - LABORATORY CBC & Chemistry Diagram: 07/27/18 10:22 07/27/18 10:22 <Marilynn Stanton - Last Filed: 07/27/18 14:45> Medical Decision Making - Medical Decision Making 07/27/18 10:32 27 year old female with acute onset of RUQ pain. H/o liver disease. VS stable ( +) Pierre's on PE. Frontal diagnosis: bilary duct disease, cholecystitis, gastritis, fatty liver, AI hepatitis. Will obtain GB U/S, basic labs, GI cocktail for pain. Reassess. 07/27/18 12:14 Beta HCG negative No leukocytosis, LFTs normal 07/27/18 12:28 Ultrasound negative for any cholelithiasis, bilary duct dilitation; pancreas, R kidney normal Patient reassessed @ bedside. Repeat belly exam shows epigastric TTP Clinically patient improved, low likelihood of acute abdominal pathology including acute cholecystitis, will discharge home with short term prescription for Donnatol, return precautions and follow-up with her previously established GI I discussed the physical exam findings, ancillary test results and final diagnoses with the patient. I answered all of the patient's questions. The patient was satisfied with the care received and felt comfortable with the discharge plan and treatment plan. The patient will return to the Emergency Department with any new, persistent or worsening symptoms. <Marilynn Stanton - Last Filed: 07/27/18 14:45> *DC/Admit/Observation/Transfer - Discharge Dispostion Decision to Admit order: No <Jay Man - Last Filed: 07/27/18 12:35> <Marilynn Stanton - Last Filed: 07/27/18 14:45> Diagnosis at time of Disposition: Abdominal pain Qualifiers: Abdominal location: epigastric Qualified Code(s): R10.13 - Epigastric pain - Discharge Dispostion Disposition: HOME Condition at time of disposition: Fair - Prescriptions Prescriptions: Phenobarb/Hyoscy/Atropine/Scop [ Tablet] 16.2 mg PO TID #6 tablet - Referrals Referrals: Jhon Bond MD [Primary Care Provider] - - Patient Instructions Printed Discharge Instructions: DI for Abdominal Pain-Adult Additional Instructions: No solid foods for the next 12 hours. Drink plenty of fluids. as prescribed. Follow-up with your rabbit fancier in 1-2 days. Return to the emergency department for any fever abdominal pain that becomes severe persistent constant any inability to tolerate fluids or for any concerns. - Post Discharge Activity Forms/Work/School Notes: Back to Work
[2018-07-27] MEDS ORDERED: SODIUM CHLORIDE 0.9% 500 ML INFUS.BAG IV ONE (10:25)
[2018-07-27] MEDS ORDERED: MAG HYDROX/AL HYDROX/SIMETH -MYLANTA- ORAL SUSPENSION PO ONE (10:26)
[2018-07-27] MEDS ORDERED: FAMOTIDINE 20 MG/50 ML IVPB 20 MG/50 ML MG IVPB ONE (10:26)
--- NOTE | 2018-07-27 10:31 | PDOC ---
Attending Attestation - Resident Resident Name: Marilynn Stanton - ED Attending Attestation I have performed the following: I have examined & evaluated the patient, The case was reviewed & discussed with the resident, I agree w/resident's findings & plan, Exceptions are as noted - HPI HPI: 07/27/18 12:44 reviewed residents hpi - Physicial Exam PE: 07/27/18 12:44 reviewed residents PE - Medical Decision Making 07/27/18 12:49 27 years old with long-standing history of abdominal discomfort right upper quadrant pain is being currently evaluated by a liver specialist for the possibility of autoimmune liver disease was told to schedule an outpatient biopsy but has not done so yet seen here in our hospital by Dr. Velasquez has had recent endoscopy and colonoscopy with no definitive diagnosis presents to the ED with several day history of recurrence of her chronic epigastric right quadrant pain but felt sharper than usual. Pain is intermittent and comes and goes no associated fever chills chest pain shortness of breath nausea vomiting or diarrhea no clear exacerbating or alleviating factors. Her vital signs are stable her exam demonstrates very mild epigastric tenderness to palpation there are no acute abdominal findings on her exam there is no rebound there is no guarding her laboratory analysis is unremarkable there is no leukocytosis and no LFT abnormalities At this current time there does not appear to be in acute life-threatening emergent condition which would require surgery or antibiotics she is well- appearing has close follow-up and return to the emergency department for any severe worsening symptoms fever or for any concerns we will treat her with a short course of and 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
[2018-07-27 10:39] LABS: BASO % 0.8 % (0-2.0); EOS % 1.1 % (0-4.5); HEMATOCRIT 39.8 % (32.4-45.2); HEMOGLOBIN 13.2 GM/dL (10.7-15.3); LYMPH % 32.2 % (8-40); MCH 28.5 pg (25.7-33.7); MCHC 33.3 g/dl (32.0-36.0); MEAN CELL VOLUME 85.6 fl (80-96); MEAN PLT VOLUME 10.5 fl (7.5-11.1); MONO % 9.6 % (3.8-10.2); NEUT % 56.3 % (42.8-82.8); PLATELET COUNT 164 K/MM3 (134-434); RBC 4.65 M/mm3 (3.60-5.2); RDW 13.1 % (11.6-15.6); WHITE BLOOD COUNT 4.5 K/mm3 (4.0-10.0)
[2018-07-27 11:09] LABS: ALBUMIN 4.3 g/dl (3.4-5.0); ALK PHOS 110 U/L (45-117); ANION GAP 9 MMOL/L (8-16); BILIRUBIN,TOTAL 0.6 mg/dL (0.2-1); BLOOD UREA NITROGEN 11 mg/dL (7-18); CHLORIDE 109 mmol/L (98-107); CO2 26 mmol/L (21-32); CREATININE 0.6 mg/dL (0.55-1.3); GLUCOSE,RANDOM 88 mg/dL (74-106); LIPASE 257 U/L (73-393); POTASSIUM 3.9 mmol/L (3.5-5.1); SGOT/AST 13 U/L (15-37); SGPT/ALT 23 U/L (13-61); SODIUM 144 mmol/L (136-145); TOT PROT 7.5 g/dl (6.4-8.2)
[2018-07-27 13:15] VITALS: BP 127/79; PULSE 85
== END 2018-07-27 12:50 | disposition home or self-care (01) ==
LOC: JER 09:19
PROC: 3E033GC Introduction of Other Therapeutic Substance into Peripheral Vein, Percutaneous Approach (ICD-10-PCS; principal; 2018-07-27)
DX: R10.13 Epigastric pain (principal); Z86.010 Personal history of colon polyps; Z87.42 Personal history of other diseases of the female genital tract; Z87.09 Personal history of other diseases of the respiratory system
CPT/HCPCS: 36415; 76705-TC; 80053; 83690; 84703; 85025; 99282-25

== ENCOUNTER 2018-08-10 12:04 | Day surgery (SDC) | payer OTHER ==
[2018-08-10 12:26] VITALS: BMI 20.1
[2018-08-10 14:14] VITALS: PULSE 70
[2018-08-10 15:05] VITALS: BP 110/60; TEMP 98
--- NOTE | 2018-08-12 18:52 | PATH ---
Surgical Pathology Report Patient Name: NERISSA HATFIELD [facility] Rec. #: [id number] /Age/Gender: 1990 (Age: 27) / F Account: [id number] Location: ASU-ENDOSCOPY Taken: 08/10/2018 Received: 08/11/2018 Reported: 08/12/2018 Physicians: Abdi Gonzalez D.O. Specimen(s) Received A: BX ILEUM B: BX RIGHT COLON C: BX TRANSVERSE COLON D: BX DESCENDING COLON E: BX SIGMOID F: POLYP SIGMOID G: BX RECTUM Clinical History Irritable bowel syndrome with diarrhea Postoperative diagnosis: Sigmoid polyp, rule out microscopic colitis, abdominal pain, diarrhea Final Diagnosis A. ILEUM, BIOPSY: ILEAL MUCOSA WITHOUT SIGNIFICANT PATHOLOGIC FINDINGS. B. COLON, RIGHT, BIOPSY: COLONIC MUCOSA WITH SMALL LYMPHOID AGGREGATE. C. TRANSVERSE COLON, BIOPSY: COLONIC MUCOSA WITH SMALL LYMPHOID AGGREGATE. D. DESCENDING COLON, BIOPSY: COLONIC MUCOSA WITHOUT SIGNIFICANT PATHOLOGIC FINDINGS. E. SIGMOID COLON, BIOPSY: COLONIC MUCOSA WITHOUT SIGNIFICANT PATHOLOGIC FINDINGS. F. SIGMOID COLON, POLYP, BIOPSY: POLYPOID COLONIC MUCOSA WITH PROMINENT LYMPHOID AGGREGATE. G. RECTUM, BIOPSY: COLONIC MUCOSA WITHOUT SIGNIFICANT PATHOLOGIC FINDINGS. Electronically Signed Kylie Lindsay M.D. Gross Description A. Received in formalin, labeled "ileum biopsy" is a doyle, irregular portion of soft tissue measuring 0.2 cm. in greatest dimension. The specimen is submitted in toto in one cassette. B. Received in formalin, labeled "right colon biopsy" are 6 doyle, irregular portions of soft tissue ranging from 0.1-0.3 cm. in greatest dimension. The specimens are submitted in toto in one cassette. C. Received in formalin, labeled "transverse colon biopsy" are 4 doyle, irregular portions of soft tissue ranging from 0.1-0.7 cm. in greatest dimension. The specimens are submitted in toto in one cassette. D. Received in formalin, labeled "descending colon biopsy" are 3 doyle, irregular portions of soft tissue averaging 0.2 cm. in greatest dimension. The specimens are submitted in toto in one cassette. E. Received in formalin, labeled "sigmoid colon biopsy" are 3 doyle, irregular portions of soft tissue ranging from 0.1-0.4 cm. in greatest dimension. The specimens are submitted in toto in one cassette. F. Received in formalin, labeled "sigmoid polyp" is a doyle, irregular portion of soft tissue measuring 0.3 cm. in greatest dimension. The specimen is submitted in toto in one cassette. G. Received in formalin, labeled "rectum biopsy" are 2 doyle, irregular portions of soft tissue measuring 0.2 and 0.4 cm. in greatest dimension. The specimens are submitted in toto in one cassette. 08/11/2018 [facility]08/11/2018
== END 2018-08-10 15:05 | disposition home or self-care (01) ==
LOC: JASU-ENDO 12:04
PROVIDERS: ATTEND Internal Medicine Gastroenterology
PROC: 0DBE8ZX Excision of Large Intestine, Via Natural or Artificial Opening Endoscopic, Diagnostic (ICD-10-PCS; principal; 2018-08-10 13:00)
DX: Z12.11 Encounter for screening for malignant neoplasm of colon (principal); Z86.010 Personal history of colon polyps; K63.5 Polyp of colon; K64.8 Other hemorrhoids
CPT/HCPCS: 84703; 88305-TC

== ENCOUNTER 2019-07-22 09:26 | Emergency (ER) | payer OTHER ==
[2019-07-22 09:57] VITALS: BP 119/75; PULSE 81; TEMP 98.1; BMI 19.2
--- NOTE | 2019-07-22 10:22 | PDOC ---
History of Present Illness <Yenni Calvillo - Last Filed: 07/22/19 11:42> - General History Source: Patient Exam Limitations: No Limitations - History of Present Illness Travel History: No Initial Comments: 07/22/19 10:48 28-year-old female presents to ED for evaluation of rectal bleeding upon defecation this a.m. Patient states history of IBS and did have some lower abdominal cramping last week accompanied with diarrhea but states both have resolved. Patient states was not exerting herself but does have history of external/internal hemorrhoids which she believes is the problem today. Patient states called her city planning engineer Dr. Becerril who told her to come to the ER for further evaluation . Patient denies fever, chills, nausea, urinary complaints, back pain dizziness, or vaginal complaints. Timing/Duration: reports: resolved prior to arrival Aggravating Factors: improves with: Defecation Alleviating Factors: improves with: None <Renetta Da Silva - Last Filed: 07/22/19 11:53> - General Chief Complaint: Rectal Bleed Stated Complaint: internal bleeding Time Seen by Provider: 07/22/19 09:59 Past History <Yenni Calvillo - Last Filed: 07/22/19 11:42> - Travel Traveled outside of the country in the last 30 days: No Close contact w/someone who was outside of country & ill: No - Past Medical History Asthma: Yes (Mild asthma last attack unknown) Cancer: No Cardiac Disorders: No CVA: No COPD: No Diabetes: No GI Disorders: Yes (mixed-type IBS, polyps) Disorders: Yes (SPONGE KIDNEY & KIDNEY STONES) HTN: No Seizures: No Thyroid Disease: No Other medical history: POS/ ADENOMYSOSIS - Reproductive History (#): 1 - Immunization History Immunization Up to Date: Yes - Psycho Social/Smoking Cessation Hx Smoking Status: No Smoking History: Never smoked Have you smoked in the past 12 months: No Number of Cigarettes Smoked Daily: 0 Hx Alcohol Use: No Drug/Substance Use Hx: No Substance Use Type: None Hx Substance Use Treatment: No Patient Lives Alone: No Lives with/in: spouse/SO <Renetta Da Silva - Last Filed: 07/22/19 11:53> - Past Medical History Allergies/Adverse Reactions: Allergies Allergy/AdvReac Type Severity Reaction Status Date / Time strawberry Allergy Mild Verified 10/24/19 09:53 milk Allergy Verified 07/22/19 09:53 Home Medications: Ambulatory Orders Phenobarb/Hyoscy/Atropine/Scop [ Tablet] 16.2 mg PO TID #6 tablet Cyanocobalamin (Vitamin B-12) [Vitamin B12] 2,500 mcg PO DAILY 08/10/18 Dicyclomine HCl 10 mg PO DAILY 08/10/18 Hyoscyamine Sulfate 0.125 mg PO DAILY 08/10/18 Ibuprofen/Diphenhydramine Cit [Motrin Pm Caplet] 800 mg DAILY PRN 08/10/18 Hydrocortisone 2.5% Topical Cr [Anusol 2.5% Hc Cream -] 1 applic RC BID #1 tube 07/22/19 Abd/GI Specific PMHX - Complaint Specific PMHX Irritable Bowel Synd (IBS): Yes <Renetta Da Silva - Last Filed: 07/22/19 11:53> Review of Systems - Review of Systems Able to Perform ROS?: Yes Constitutional: No: Symptoms Reported HEENTM: No: Symptoms Reported Respiratory: No: Symptoms reported Cardiac (ROS): No: Symptoms Reported ABD/GI: Yes: Diarrhea, Rectal Bleeding, Abdominal cramping : No: Symptoms Reported Musculoskeletal: No: Symptoms Reported Integumentary: No: Symptoms Reported Neurological: No: Symptoms reported Hematologic/Lymphatic: No: Anemia <Renetta Da Silva - Last Filed: 07/22/19 11:53> *Physical Exam - Vital Signs Last Vital Signs Temp Pulse Resp BP Pulse Ox 98.1 F 81 17 119/75 100 07/22/19 09:53 07/22/19 09:53 07/22/19 09:53 07/22/19 09:53 07/22/19 09:53 <Yenni Calvillo - Last Filed: 07/22/19 11:42> - Vital Signs Last Vital Signs Temp Pulse Resp BP Pulse Ox 98.1 F 81 17 119/75 100 07/22/19 09:53 07/22/19 09:53 07/22/19 09:53 07/22/19 09:53 07/22/19 09:53 - Physical Exam General Appearance: Yes: Nourished, Appropriately Dressed. No: Apparent Distress HEENT: negative: Pale Conjunctivae Respiratory/Chest: positive: Lungs Clear, Normal Breath Sounds. negative: Respiratory Distress, Accessory Muscle Use Cardiovascular: positive: Regular Rhythm, Regular Rate. negative: Murmur Gastrointestinal/Abdominal: positive: Soft, Tenderness (Mild mid suprapubic) Rectal Exam: positive: normal rectal tone, other (Stool light brown on withdrawn glove). negative: hemorrhoids (Noted skin tags but no inflamed or thrombosed hemorrhoids palpable or visualized) Integumentary: positive: Normal Color, Warm, Moist Neurologic: positive: Motor Strength 5/5 (Ambulatory) <Renetta Da Silva - Last Filed: 07/22/19 11:53> ED Treatment Course - LABORATORY CBC & Chemistry Diagram: 07/22/19 09:54 07/22/19 09:54 - ADDITIONAL ORDERS Additional order review: Laboratory Results 07/22/19 09:54 Sodium 138 Potassium 4.5 Chloride 107 Carbon Dioxide 27 Anion Gap 4 L BUN 10.6 Creatinine 0.6 Est GFR (CKD-EPI)AfAm 141.76 Est GFR (CKD-EPI)NonAf 122.31 Random Glucose 87 Calcium 9.2 Total Bilirubin 0.7 AST 17 ALT 28 Alkaline Phosphatase 76 Total Protein 6.8 Albumin 3.7 07/22/19 09:54 RBC 4.25 MCV 86.7 MCHC 33.0 RDW 13.2 MPV 11.1 Neutrophils % 73.3 D Lymphocytes % 20.4 D Monocytes % 5.5 Eosinophils % 0.4 Basophils % 0.4 <Yenni Calvillo - Last Filed: 07/22/19 11:42> - LABORATORY CBC & Chemistry Diagram: 07/22/19 09:54 07/22/19 09:54 <Renetta Da Silva - Last Filed: 07/22/19 11:53> Medical Decision Making - Medical Decision Making 07/22/19 11:20 The patient was seen and evaluated in conjunction with midlevel provider under my direct supervision, ancillary studies were reviewed. I agree with the plan as outlined with HELEN Da Silva. HPI, workup/dispo as outlined. VS reviewed, wnl. labs unremarkable. anticipate discharge, pcp followup, return precautions 07/22/19 11:42 <Yenni Calvillo - Last Filed: 07/22/19 11:42> - Medical Decision Making 07/22/19 10:22 chief complaint: Rectal bleeding upon defecation this morning noted on tissue patient with history of IBS and states last week did have lower abdominal cramping accompanied with a few episodes of brown watery stool. Patient is followed by Dr. dutton GI Exam: Vital signs stable mild [place] with tenderness no inflamed or thrombosed hemorrhoids palpable or visualized . light brown stool on withdrawn gloves Plan: CBC, comp and will consult GI Dr. Becerril 07/22/19 11:[address] Becerril who recommended patient be prescribed Anusol topical twice a day until she is seen in the office on Friday. Laboratory Tests 07/22/19 07/22/19 09:54 09:54 WBC 6.0 Hgb 12.2 Hct 36.8 Absolute Neuts (auto) 4.4 Sodium 138 Potassium 4.5 Chloride 107 Carbon Dioxide 27 Anion Gap 4 L BUN 10.6 Creatinine 0.6 Random Glucose 87 Calcium 9.2 Total Bilirubin 0.7 AST 17 ALT 28 Alkaline Phosphatase 76 Total Protein 6.8 Albumin 3.7 <Renetta Da Silva - Last Filed: 07/22/19 11:53> Discharge <Yenni Calvillo - Last Filed: 07/22/19 11:42> - Discharge Information Problems reviewed: Yes <Renetta Da Silva - Last Filed: 07/22/19 11:53> - Discharge Information Clinical Impression/Diagnosis: Rectal bleeding Condition: Good Disposition: HOME - Additional Discharge Information Prescriptions: Hydrocortisone 2.5% Topical Cr [Anusol 2.5% Hc Cream -] 1 applic RC BID #1 tube - Follow up/Referral Referrals: Jhon Bond MD [Primary Care Provider] - Jhon Gonzalez DO [Staff Physician] - - Patient Discharge Instructions Patient Printed Discharge Instructions: DI for Rectal Bleeding Additional Instructions: At this time you have been prescribed Anusol topical which you should use twice a day until you are seen by the city planning engineer on Friday. If you develop worsening abdominal pain, fever, or heavy rectal bleeding please return to the ED - Post Discharge Activity Work/Back to School Note: Back to Work
[2019-07-22 10:44] LABS: BASO % 0.4 % (0-2.0); EOS % 0.4 % (0-4.5); HEMATOCRIT 36.8 % (32.4-45.2); HEMOGLOBIN 12.2 GM/dL (10.7-15.3); LYMPH % 20.4 % (8-40); MCH 28.7 pg (25.7-33.7); MEAN CELL VOLUME 86.7 fl (80-96); MEAN PLT VOLUME 11.1 fl (7.5-11.1); MONO % 5.5 % (3.8-10.2); NEUT % 73.3 % (42.8-82.8); PLATELET COUNT 174 K/MM3 (134-434); RBC 4.25 M/mm3 (3.60-5.2); RDW 13.2 % (11.6-15.6)
[2019-07-22 11:11] LABS: ALBUMIN 3.7 g/dl (3.4-5.0); BILIRUBIN,TOTAL 0.7 mg/dL (0.2-1); BLOOD UREA NITROGEN 10.6 mg/dL (7-18); CALCIUM 9.2 mg/dL (8.5-10.1); CREATININE 0.6 mg/dL (0.55-1.3); POTASSIUM 4.5 mmol/L (3.5-5.1); TOT PROT 6.8 g/dl (6.4-8.2)
== END 2019-07-22 12:09 | disposition home or self-care (01) ==
LOC: JER 09:26
DX: K62.5 Hemorrhage of anus and rectum (principal); Z87.19 Personal history of other diseases of the digestive system; Z91.018 Allergy to other foods; Z91.011 Allergy to milk products
CPT/HCPCS: 36415; 80053; 85025; 99282-25

== ENCOUNTER 2019-08-05 11:37 | Day surgery (SDC) | payer OTHER ==
[2019-08-04 16:18] VITALS: BMI 19.3
[2019-08-05 12:17] VITALS: TEMP 98.2
[2019-08-05 15:05] VITALS: BP 101/56; PULSE 68
== END 2019-08-05 14:40 | disposition home or self-care (01) ==
LOC: JASU-ENDO 11:37
PROVIDERS: ATTEND Internal Medicine Gastroenterology
PROC: 0DJD8ZZ Inspection of Lower Intestinal Tract, Via Natural or Artificial Opening Endoscopic (ICD-10-PCS; principal; 2019-08-05 11:45)
DX: K62.5 Hemorrhage of anus and rectum (principal); K64.8 Other hemorrhoids
CPT/HCPCS: 81025

== ENCOUNTER 2019-08-30 18:02 | Emergency (ER) | payer OTHER ==
[2019-08-30 18:07] VITALS: BP 111/75; PULSE 89; TEMP 98; BMI 18.8
[2019-08-30] MEDS ORDERED: IBUPROFEN 400 MG TABLET (FP) PO ONE ×2 (18:14→18:26)
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
== END 2019-08-30 19:13 | disposition home or self-care (01) ==
LOC: JERFT 18:02
DX: S10.81XA Abrasion of other specified part of neck, initial encounter (principal); Y04.2XXA Assault by strike against or bumped into by another person, initial encounter; Y93.89 Activity, other specified; Y92.038 Other place in apartment as the place of occurrence of the external cause; Y99.8 Other external cause status; Y07.03 Male partner, perpetrator of maltreatment and neglect; Z87.19 Personal history of other diseases of the digestive system; Z87.09 Personal history of other diseases of the respiratory system; Z87.442 Personal history of urinary calculi; Z91.018 Allergy to other foods; Z91.011 Allergy to milk products
CPT/HCPCS: 99282-25

== ENCOUNTER 2019-10-13 07:08 | Emergency (ER) | payer OTHER ==
[2019-10-13 07:25] VITALS: BP 102/66; PULSE 84; TEMP 98; BMI 18.3
--- NOTE | 2019-10-13 08:01 | PDOC ---
History of Present Illness - General Chief Complaint: Vomiting/Diarrhea Stated Complaint: ABD PAIN Time Seen by Provider: 10/13/19 07:36 - History of Present Illness Initial Comments: 10/13/19 07:57 CHIEF COMPLAINT: abdominal pain, vomiting, diarrhea HISTORY OF PRESENT ILLNESS: 29 yo F with hx of IBS presents to ED with vomiting and diarrhea x 2 days. Patient reports her symptoms first began ten days ago, then resolved for one week after she took Immodium, and then started again 2 days ago. She had 8 episodes of vomiting yesterday as well as soft stool, and today she began to have diarrhea again. Patient notes that she was supposed to see her offensive coordinator Dr. Gonzalez today but she was rescheduled for next week. No recent travel or sick contacts. PAST MEDICAL HISTORY: IBS FAMILY HISTORY: Denies SOCIAL HISTORY: Denies tobacco, alcohol, illicit drug use. SURGICAL HISTORY: Denies ALLERGIES: strawberry,milk, NKDA REVIEW OF SYSTEMS General/Constitutional: Denies fever or chills. Denies weakness, weight change. HEENT: Denies change in vision. Denies ear pain or discharge. Denies sore throat. Cardiovascular: Denies chest pain or shortness of breath. Respiratory: Denies cough, wheezing, or hemoptysis. Gastrointestinal: Vomiting and diarrhea x 2 days. Denies rectal bleeding. Genitourinary: Denies dysuria, frequency, or change in urination. Musculoskeletal: Denies joint or muscle swelling or pain. Denies neck or back pain. Skin and breasts: Denies rash or easy bruising. Neurologic: Denies headache, vertigo, loss of consciousness, or loss of sensation. Psychiatric: Denies depression or anxiety. PHYSICAL EXAM General Appearance: Well-appearing, appropriately dressed. No apparent distress. HEENT: EOMI, PERRLA, normal ENT inspection, normal voice, TMs normal, pharynx normal. No conjunctival pallor. No photophobia, scleral icterus. Neck: Supple. Trachea midline. No tenderness, rigidity, carotid bruit, stridor , lymphadenopathy, or thyromegaly. Respiratory/Chest: Lungs CTAB. No shortness of breath, chest tenderness, respiratory distress, accessory muscle use. No crackles, rales, rhonchi, stridor , wheezing, dullness Cardiovascular: RRR. S1, S2. No JVD, murmur, bradycardia, tachycardia. Gastrointestinal/Abdominal: Normal bowel sounds. Abdomen soft, non-distended. No tenderness or rebound tenderness. No organomegaly, pulsatile mass, guarding , hernia, hepatomegaly, splenomegaly. Lymphatic: No adenopathy, tenderness. Musculoskeletal/Extremities: Normal inspection. FROM of all extremities, normal capillary refill. Pelvis Stable. No CVA tenderness. No tenderness to extremities, pedal edema, swelling, erythema or deformity. Integumentary: Appropriate color, dry, warm. 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 Fully oriented, alert. Appropriate mood/affect. Motor strength 5/5. No appreciable EOM palsy, facial droop or sensory deficit. Past History - Past Medical History Allergies/Adverse Reactions: Allergies Allergy/AdvReac Type Severity Reaction Status Date / Time strawberry Allergy Mild Verified 08/30/19 18:07 milk Allergy Verified 08/30/19 18:07 Home Medications: Ambulatory Orders Phenobarb/Hyoscy/Atropine/Scop [ Tablet] 16.2 mg PO TID #6 tablet Cyanocobalamin (Vitamin B-12) [Vitamin B12] 2,500 mcg PO DAILY 08/10/18 Dicyclomine HCl 10 mg PO DAILY 08/10/18 Dicyclomine HCl [Bentyl -] 20 mg PO Q6H #28 tablet 10/13/19 Asthma: Yes (Mild asthma last attack unknown) Cancer: No Cardiac Disorders: No CVA: No COPD: No Diabetes: No GI Disorders: Yes (IBS; ALTERNATING DIARRHEA/CONSTIPATION/ABDOMINAL PAIN,COLON POLYPS,TUBULARa) Disorders: Yes (SPONGE KIDNEY & KIDNEY STONES) HTN: No Seizures: No Thyroid Disease: No Other medical history: precancerous polyps - Reproductive History (#): 1 - Immunization History Immunization Up to Date: Yes - Psycho Social/Smoking Cessation Hx Smoking Status: No Smoking History: Never smoked Have you smoked in the past 12 months: No Number of Cigarettes Smoked Daily: 0 Information on smoking cessation initiated: No Hx Alcohol Use: No Drug/Substance Use Hx: No Substance Use Type: None Hx Substance Use Treatment: No Abd/GI Specific PMHX - Complaint Specific PMHX Irritable Bowel Synd (IBS): Yes *Physical Exam - Vital Signs Last Vital Signs Temp Pulse Resp BP Pulse Ox 98.0 F 84 18 102/66 99 10/13/19 07:19 10/13/19 07:19 10/13/19 07:19 10/13/19 07:19 10/13/19 07:19 ED Treatment Course - LABORATORY CBC & Chemistry Diagram: 10/13/19 08:23 10/13/19 08:23 Medical Decision Making - Medical Decision Making 10/13/19 08:08 29 yo F with hx of IBS presents to ED with vomiting and diarrhea x 2 days. -labs -fluids, zofran 10/13/19 09:21 -Bentyl Labs unremarkable. Patient to f/u with GI as scheduled. Discharge - Discharge Information Problems reviewed: Yes Clinical Impression/Diagnosis: Abdominal pain Qualifiers: Abdominal location: unspecified location Qualified Code(s): R10.9 - Unspecified abdominal pain Diarrhea Qualifiers: Diarrhea type: unspecified type Qualified Code(s): R19.7 - Diarrhea, unspecified Condition: Stable Disposition: HOME - Admission No - Additional Discharge Information Prescriptions: Dicyclomine HCl [Bentyl -] 20 mg PO Q6H #28 tablet - Follow up/Referral Referrals: Jhon Bond MD [Primary Care Provider] - Jhon Gonzalez DO [Staff Physician] - - Patient Discharge Instructions Patient Printed Discharge Instructions: DI for Abdominal Pain-Adult - Post Discharge Activity
[2019-10-13] MEDS ORDERED: ONDANSETRON 4 MG/2 ML VIAL IVPUSH ONE (08:02)
[2019-10-13] MEDS ORDERED: SODIUM CHLORIDE 0.9% 500 ML INFUS.BAG IV ONE (08:03)
--- NOTE | 2019-10-13 08:26 | PDOC ---
*Physical Exam - Vital Signs Last Vital Signs Temp Pulse Resp BP Pulse Ox 98.0 F 84 18 102/66 99 10/13/19 07:19 10/13/19 07:19 10/13/19 07:19 10/13/19 07:19 10/13/19 07:19 - Physical Exam 10/13/19 08:25 The patient was examined by [HELEN knott] under my direct supervision. I personally evaluated the patient. I concur with the above findings and the plan of care. ED Treatment Course - LABORATORY CBC & Chemistry Diagram: 10/13/19 08:23 10/13/19 08:23 Discharge - Discharge Information Problems reviewed: Yes Clinical Impression/Diagnosis: Abdominal pain Qualifiers: Abdominal location: unspecified location Qualified Code(s): R10.9 - Unspecified abdominal pain Diarrhea Qualifiers: Diarrhea type: unspecified type Qualified Code(s): R19.7 - Diarrhea, unspecified Condition: Stable Disposition: HOME - Additional Discharge Information Prescriptions: Dicyclomine HCl [Bentyl -] 20 mg PO Q6H #28 tablet - Follow up/Referral Referrals: Jhon Gonzalez DO [Staff Physician] - Jhon Bond MD [Primary Care Provider] - - Patient Discharge Instructions Patient Printed Discharge Instructions: DI for Abdominal Pain-Adult - Post Discharge Activity
[2019-10-13 08:52] LABS: BASO % 0.3 % (0-2.0); EOS % 0.4 % (0-4.5); HEMATOCRIT 38.8 % (32.4-45.2); LYMPH % 9.9 % (8-40); MCH 28.8 pg (25.7-33.7); MCHC 33.6 g/dl (32.0-36.0); MEAN CELL VOLUME 85.7 fl (80-96); MEAN PLT VOLUME 11.2 fl (7.5-11.1); MONO % 7.9 % (3.8-10.2); NEUT % 81.5 % (42.8-82.8); PLATELET COUNT 140 K/MM3 (134-434); RBC 4.53 M/mm3 (3.60-5.2); RDW 13.4 % (11.6-15.6); WHITE BLOOD COUNT 5.3 K/mm3 (4.0-10.0)
[2019-10-13] MEDS ORDERED: DICYCLOMINE HCL 20 MG TABLET PO ONE (09:04)
[2019-10-13] MEDS ORDERED: DICYCLOMINE HCL 10 MG CAPSULE ONE (09:07)
[2019-10-13 09:15] LABS: BILIRUBIN,TOTAL 0.8 mg/dL (0.2-1); BLOOD UREA NITROGEN 9.9 mg/dL (7-18); CREATININE 0.6 mg/dL (0.55-1.3); TOT PROT 7.5 g/dl (6.4-8.2)
== END 2019-10-13 09:50 | disposition home or self-care (01) ==
LOC: JER 07:08
PROC: 3E0337Z Introduction of Electrolytic and Water Balance Substance into Peripheral Vein, Percutaneous Approach (ICD-10-PCS; principal; 2019-10-13)
DX: R10.9 Unspecified abdominal pain (principal); R19.7 Diarrhea, unspecified; Z91.018 Allergy to other foods; Z91.011 Allergy to milk products; K58.9 Irritable bowel syndrome, unspecified
CPT/HCPCS: 36415; 80053; 85025; 99282-25

== ENCOUNTER 2020-11-10 16:01 | Day surgery (SDC) | payer OTHER ==
[2020-11-10 16:02] VITALS: BMI 20.5
[2020-11-10] MEDS ORDERED: SEVOFLURANE 250 ML BTL ONE (18:37)
[2020-11-10] MEDS ORDERED: DESFLURANE GAS 240 ML BOTTLE IH ONE (18:39)
[2020-11-10] MEDS ORDERED: LACTATED RINGERS SOLUTION 1,000 ML IV SCH (18:45)
[2020-11-10] MEDS ORDERED: oxyCODONE HCL 5 MG TABLET PO PRN (18:45)
[2020-11-10] MEDS ORDERED: PROMETHAZINE HCL 25 MG/1 ML VIAL IVPUSH PRN (18:45)
[2020-11-10] MEDS ORDERED: ceFAZolin SODIUM 1 GM VIAL IVPB ONE (19:14)
[2020-11-10] MEDS ORDERED: DEXAMETHASONE SOD PHOSPHATE 4 MG/1 ML VIAL ONE (19:17)
[2020-11-10] MEDS ORDERED: KETOROLAC TROMETHAMINE 30 MG/1 ML VIAL ONE (19:17)
[2020-11-10 22:14] VITALS: BP 108/67; PULSE 92; TEMP 98.1
== END 2020-11-10 22:17 | disposition home or self-care (01) ==
LOC: JASU-SURG 16:01 → J3W 21:51 → JASU-SURG 22:17
PROVIDERS: ATTEND Obstetrics & Gynecology
PROC: 10D17ZZ Extraction of Products of Conception, Retained, Via Natural or Artificial Opening (ICD-10-PCS; principal; 2020-11-10 19:00)
DX: O02.1 Missed abortion (principal)
CPT/HCPCS: 86850; 86900; 86901; 88305-TC; 94760

== ENCOUNTER 2021-07-06 22:41 | Emergency (ER) | payer OTHER ==
[2021-07-06 22:51] VITALS: BP 107/71; PULSE 85; TEMP 98.2; BMI 23.8
== END 2021-07-07 00:54 | disposition left against medical advice (07) ==
LOC: JER 22:41
DX: J02.9 Acute pharyngitis, unspecified (principal)
CPT/HCPCS: 99283-25

== ENCOUNTER 2021-09-24 12:18 | Emergency (ER) | payer OTHER ==
[2021-09-24 12:31] VITALS: BMI 26.2
[2021-09-24] MEDS ORDERED: ACETAMINOPHEN 500 MG TABLET (FP) PO ONE (13:13)
[2021-09-24] MEDS ORDERED: SODIUM PHOSPHATE/NA BIPHOS 133 ML ENEMA PR ONE (13:52)
[2021-09-24] MEDS ORDERED: DEXTROSE 5%-LACTATED RINGERS 1,000 ML IV SCH (15:30)
[2021-09-24 15:32] VITALS: BP 101/64; PULSE 91; TEMP 97.9
[2021-09-24] MEDS ORDERED: NIFEdipine 10 MG CAPSULE (FP) PO ONE (16:45)
== END 2021-09-24 18:54 | disposition home or self-care (01) ==
LOC: JER 12:18
DX: K59.00 Constipation, unspecified (principal)
CPT/HCPCS: 76815; 99284-25

== ENCOUNTER 2021-10-27 19:25 | Inpatient (IN) | payer OTHER ==
[2021-10-27] MEDS ORDERED: ELECTROLYTE-148 SOLN 1,000 ML IV SCH (19:30)
[2021-10-27 20:44] LABS: BASO % 0.1 % (0-2.0); EOS % 0.4 % (0-4.5); HEMATOCRIT 33.1 % (32.4-45.2); HEMOGLOBIN 11.2 GM/dL (10.7-15.3); LYMPH % 9.6 % (8-40); MCH 29.7 pg (25.7-33.7); MCHC 33.7 g/dl (32.0-36.0); MEAN CELL VOLUME 88.4 fl (80-96); MEAN PLT VOLUME 11.5 fl (7.5-11.1); MONO % 8.6 % (3.8-10.2); NEUT % 81.3 % (42.8-82.8); PLATELET COUNT 115 10^3/uL (134-434); RBC 3.75 M/mm3 (3.60-5.2); RDW 14.5 % (11.6-15.6)
[2021-10-27 20:50] LABS: INR 0.95 (0.83-1.09); PROTHROMBIN TIME (PATIENT) 10.9 SEC (9.7-13.0)
[2021-10-27 20:52] LABS: ACTIVATED PTT 28.6 SECONDS (25.2-36.5)
[2021-10-27 21:03] LABS: CALCIUM 9.1 mg/dL (8.5-10.1)
[2021-10-27 21:04] LABS: BLOOD UREA NITROGEN 8.4 mg/dL (7-18)
[2021-10-27] MEDS ORDERED: FENTANYL/BUPIVACAINE/NS/PF - PCEA - 50 ML DISP.SYRIN EP ONE (21:05)
[2021-10-27 21:07] LABS: CREATININE 0.5 mg/dL (0.55-1.3)
[2021-10-27 21:10] LABS: ANISOCYTOSIS 1+; MACROCYTOSIS 0; PLATELET ESTIMATE DECREASED; TOXIC GRANULATION 1+
[2021-10-27] MEDS ORDERED: OXYTOCIN 20 UNITS in 0.9% NS 20 UNIT/1,000 ML INFUS.BAG IV ONE (21:13)
[2021-10-27] MEDS ORDERED: NALOXONE HCL 0.4 MG/ML VIAL IVPUSH PRN (21:19)
[2021-10-27] MEDS ORDERED: BUPIVACAINE HCL/PF 0.25% (2.5MG/ML) 10 ML VIAL ONE (21:21)
[2021-10-27] MEDS ORDERED: FENTANYL/BUPIVACAINE/NS/PF - PCEA - 50 ML DISP.SYRIN EP SCH (21:30)
[2021-10-27] MEDS ORDERED: ePHEDrine SULFATE 50 MG/1 ML AMPULE ONE (21:53)
[2021-10-27 22:51] VITALS: BMI 28.9
[2021-10-27] MEDS ORDERED: METHYLERGONOVINE MALEATE 0.2 MG/1 ML AMP IM PRN (23:39)
[2021-10-27] MEDS ORDERED: BISACODYL 10 MG SUPP.RECT RC PRN (23:39)
[2021-10-27] MEDS ORDERED: WITCH HAZEL 50% (TUCKS) 40 PAD/JAR PAD TP PRN (23:39)
[2021-10-27] MEDS ORDERED: BENZOCAINE 28 GM HEMORRHOIDAL OINTMENT TP PRN (23:39)
[2021-10-27] MEDS ORDERED: OXYTOCIN 20 UNITS in 0.9% NS 20 UNIT/1,000 ML INFUS.BAG IV SCH (23:45)
[2021-10-28] MEDS ORDERED: IBUPROFEN 600 MG TABLET (FP) PO ONE (01:00)
[2021-10-28] MEDS: IBUPROFEN 600 MG TABLET (FP) PO PRN ×2 (01:15→08:52)
[2021-10-28] MEDS: ACETAMINOPHEN 325 MG TABLET (FP) PO PRN ×2 (02:23→11:01)
[2021-10-28] MEDS: BENZOCAINE 20% 57 GM BOTTLE TP PRN ×2 (02:24→21:09)
[2021-10-28 08:08] LABS: BASO % 0.1 % (0-2.0); EOS % 0.2 % (0-4.5); HEMATOCRIT 29.2 % (32.4-45.2); HEMOGLOBIN 9.6 GM/dL (10.7-15.3); LYMPH % 6.9 % (8-40); MCH 29.6 pg (25.7-33.7); MEAN CELL VOLUME 89.7 fl (80-96); MEAN PLT VOLUME 11.6 fl (7.5-11.1); MONO % 9.2 % (3.8-10.2); NEUT % 83.6 % (42.8-82.8); PLATELET COUNT 107 10^3/uL (134-434); RBC 3.25 M/mm3 (3.60-5.2); RDW 14.5 % (11.6-15.6); WHITE BLOOD COUNT 16.1 K/mm3 (4.0-10.0)
[2021-10-28] MEDS: PRENATAL VITAMINS W/ FOLIC ACID TABLET (FP) PO SCH (09:25)
[2021-10-28] MEDS: oxyCODONE HCL 5 MG TABLET PO PRN ×2 (12:15→21:10)
[2021-10-28] MEDS ORDERED: SENNOSIDES/DOCUSATE COMBO (SENNA PLUS) TABLET (UD) PO PRN (22:00)
[2021-10-29] MEDS: IBUPROFEN 600 MG TABLET (FP) PO PRN (08:56)
[2021-10-29] MEDS: PRENATAL VITAMINS W/ FOLIC ACID TABLET (FP) PO SCH (09:47)
[2021-10-29 10:07] VITALS: BP 97/65; PULSE 83; TEMP 97.5
== END 2021-10-29 14:10 | disposition home or self-care (01) | DRG 807 ==
LOC: JLDR 19:25 → J3W 10-28 01:59
PROVIDERS: ADMIT Obstetrics & Gynecology; ATTEND Obstetrics & Gynecology
PROC: 10E0XZZ Delivery of Products of Conception, External Approach (ICD-10-PCS; principal; 2021-10-27)
PROC: 0KQM0ZZ Repair Perineum Muscle, Open Approach (ICD-10-PCS; 2021-10-27)
DX: O26.873 Cervical shortening, third trimester (principal); Z37.0 Single live birth; O70.1 Second degree perineal laceration during delivery; O99.02 Anemia complicating childbirth; D64.9 Anemia, unspecified; Z3A.37 37 weeks gestation of pregnancy
CPT/HCPCS: 36415; 59409; 80048; 85025; 85610; 85730; 86780; 86850; 86900; 86901; C9803; U0003; U0005

== ENCOUNTER → 2022-12-18 | Emergency (ER) | payer OTHER ==
[~2022-12-18] MED LIST: ALBUTEROL SO4 2.5/IPRATROPIUM 0.5 INH SOL 3 ML VIAL.NEB. NEB ONE; DEXAMETHASONE SOD PHOSPHATE 10 MG/1 ML VIAL IVPUSH ONE; DEXAMETHASONE SOD PHOSPHATE 10 MG/1 ML VIAL ONE; KETOROLAC TROMETHAMINE 15 MG/ML VIAL IVPUSH ONE; KETOROLAC TROMETHAMINE 30 MG/1 ML VIAL ONE
[2022-12-18 11:47] VITALS: RESP 18; BMI 20.5
[2022-12-18 14:07] LABS: BASO % 0.4 % (0-2.0); EOS % 0.3 % (0-4.5); HEMOGLOBIN 13.7 GM/dL (10.7-15.3); LYMPH % 17.1 % (8-40); MCHC 33.4 g/dl (32.0-36.0); MEAN CELL VOLUME 83.9 fl (80-96); MEAN PLT VOLUME 11.5 fl (7.5-11.1); MONO % 6.7 % (3.8-10.2); NEUT % 75.5 % (42.8-82.8); PLATELET COUNT 171 10^3/uL (134-434); RBC 4.89 M/mm3 (3.60-5.2); RDW 13.9 % (11.6-15.6); WHITE BLOOD COUNT 6.9 K/mm3 (4.0-10.0)
[2022-12-18 14:16] LABS: INR 1.12 (0.83-1.09)
[2022-12-18 14:31] LABS: ALBUMIN 4.5 g/dl (3.4-5.0); BLOOD UREA NITROGEN 14.4 mg/dL (7-18); CALCIUM 9.6 mg/dL (8.5-10.1); MAGNESIUM 2.2 mg/dL (1.8-2.4)
[2022-12-18 14:34] LABS: CREATININE 0.5 mg/dL (0.55-1.3)
[2022-12-18 16:38] VITALS: BP 126/50; PULSE 90; TEMP 98.6
== END | disposition home or self-care (01) ==
LOC: JER 11:21
PROC: 3E0333Z Introduction of Anti-inflammatory into Peripheral Vein, Percutaneous Approach (ICD-10-PCS; principal; 2022-12-18)
PROC: 3E033GC Introduction of Other Therapeutic Substance into Peripheral Vein, Percutaneous Approach (ICD-10-PCS; 2022-12-18)
PROC: 3E0F7GC Introduction of Other Therapeutic Substance into Respiratory Tract, Via Natural or Artificial Opening (ICD-10-PCS; 2022-12-18)
DX: R07.89 Other chest pain (principal); J98.01 Acute bronchospasm; M54.9 Dorsalgia, unspecified
CPT/HCPCS: 36415; 71045-TC-FY; 71275-TC; 80053; 82550; 83735; 84484; 84703; 85025; 85379; 85610; 85730; 93005; 93010; 99285-25; J1100; Q9967

== ENCOUNTER 2023-02-06 04:13 | Day surgery (SDC) | payer OTHER ==
[2023-02-04 16:27] VITALS: BMI 20.5
[2023-02-06 14:00] VITALS: TEMP 98
[2023-02-06 14:07] VITALS: BP 102/69; PULSE 69; RESP 13
== END 2023-02-06 11:01 | disposition home or self-care (01) ==
LOC: JASU-ENDO 04:13
PROVIDERS: ATTEND Internal Medicine Gastroenterology
PROC: 0DBC8ZX Excision of Ileocecal Valve, Via Natural or Artificial Opening Endoscopic, Diagnostic (ICD-10-PCS; 2023-02-06)
PROC: 0DBB8ZX Excision of Ileum, Via Natural or Artificial Opening Endoscopic, Diagnostic (ICD-10-PCS; 2023-02-06)
PROC: 0DBM8ZX Excision of Descending Colon, Via Natural or Artificial Opening Endoscopic, Diagnostic (ICD-10-PCS; principal; 2023-02-06 09:00)
DX: Z12.11 Encounter for screening for malignant neoplasm of colon (principal); K63.3 Ulcer of intestine; K64.8 Other hemorrhoids; K62.89 Other specified diseases of anus and rectum
CPT/HCPCS: 81025; 88305-TC

== ENCOUNTER 2023-03-20 04:31 | Day surgery (SDC) | payer OTHER ==
[2023-03-18 15:45] VITALS: BMI 19.7
[2023-03-20 10:59] VITALS: TEMP 98
[2023-03-20 11:21] VITALS: BP 106/71; PULSE 65; RESP 12
== END 2023-03-20 11:37 | disposition home or self-care (01) ==
LOC: JASU-ENDO 04:31
PROVIDERS: ATTEND Internal Medicine Gastroenterology
PROC: 0DB78ZX Excision of Stomach, Pylorus, Via Natural or Artificial Opening Endoscopic, Diagnostic (ICD-10-PCS; 2023-03-20)
PROC: 0DB68ZX Excision of Stomach, Via Natural or Artificial Opening Endoscopic, Diagnostic (ICD-10-PCS; principal; 2023-03-20 10:30)
DX: K29.50 Unspecified chronic gastritis without bleeding (principal)
CPT/HCPCS: 81025; 88305-TC; 88342-TC

== ENCOUNTER 2024-05-21 23:04 | Observation (INO) | payer OTHER ==
[2024-05-21 23:10] VITALS: BMI 19.7
[2024-05-21] MEDS ORDERED: morphine SULFATE 4 MG/ML VIAL ONE (23:39)
[2024-05-21] MEDS ORDERED: ONDANSETRON 4 MG/2 ML VIAL ONE (23:40)
[2024-05-22] LABS: HEMATOCRIT 39.7 % (32.4-45.2); HEMOGLOBIN 13.2 GM/dL (10.7-15.3); MCH 28.6 pg (25.7-33.7); MCHC 33.2 g/dl (32.0-36.0); MEAN CELL VOLUME 85.9 fl (80-96); MEAN PLT VOLUME 10.9 fl (7.5-11.1); PLATELET COUNT 186 10^3/uL (134-434); RBC 4.61 M/mm3 (3.60-5.2); RDW 13.6 % (11.6-15.6); WHITE BLOOD COUNT 13.4 K/mm3 (4.0-10.0)
[2024-05-22] MEDS: morphine CARPU-JECT 2 MG/1 ML DISP.SYRIN IVPUSH ONE (00:01)
[2024-05-22] MEDS: ONDANSETRON 4 MG/2 ML VIAL IVPUSH ONE ×2 (00:02→05:07)
[2024-05-22] MEDS: LACTATED RINGERS SOLUTION 1000 ML INFUS.BAG IV ONE ×3 (00:02→09:36)
[2024-05-22 00:16] LABS: EOS % 0.7 % (0-4.5); LYMPH % 11.2 % (8-40); MONO % 3.5 % (3.8-10.2); NEUT % 84.2 % (42.8-82.8)
[2024-05-22 00:17] LABS: BASO % 0.4 % (0-2.0); INR 0.96 (0.83-1.09)
[2024-05-22 00:19] LABS: ACTIVATED PTT 30.8 SECONDS (25.2-36.5)
[2024-05-22 00:22] LABS: POTASSIUM 3.5 mmol/L (3.5-5.1)
[2024-05-22 00:24] LABS: ALBUMIN 4.5 g/dl (3.4-5.0); CALCIUM 9.8 mg/dL (8.5-10.1)
[2024-05-22 00:25] LABS: BLOOD UREA NITROGEN 8.8 mg/dL (7-18); MAGNESIUM 2.1 mg/dL (1.8-2.4)
[2024-05-22 00:28] LABS: CREATININE 0.6 mg/dL (0.55-1.3)
[2024-05-22 00:29] LABS: BILIRUBIN,TOTAL 0.8 mg/dL (0.2-1)
[2024-05-22] MEDS ORDERED: morphine SULFATE 4 MG/ML VIAL ONE ×2 (02:31→08:37)
[2024-05-22] MEDS: morphine SULFATE 4 MG/ML VIAL IVPUSH ONE (02:34)
[2024-05-22 02:54] LABS: URINE APPEARANCE CLEAR; URINE BILIRUBIN NEGATIVE (NEGATIVE); URINE COLOR YELLOW; URINE GLUCOSE (UA) NEGATIVE (NEGATIVE); URINE KETONE NEGATIVE (NEGATIVE); URINE LEUK ESTERASE NEGATIVE (NEGATIVE); URINE NITRITE NEGATIVE (NEGATIVE); URINE PROTEIN NEGATIVE (NEGATIVE); URINE UROBILINOGEN 0.2 mg/dL (0.2-1.0)
[2024-05-22] MEDS ORDERED: ONDANSETRON 4 MG/2 ML VIAL ONE ×2 (04:45→09:35)
[2024-05-22] MEDS ORDERED: metroNIDAZOLE 250 MG TABLET ONE (04:46)
[2024-05-22] MEDS: metroNIDAZOLE 500 MG TABLET PO ONE (04:56)
[2024-05-22] MEDS ORDERED: KETOROLAC TROMETHAMINE 15 MG/ML VIAL ONE (06:11)
[2024-05-22] MEDS: KETOROLAC TROMETHAMINE 15 MG/ML VIAL IVPUSH ONE (06:15)
[2024-05-22] MEDS ORDERED: ACETAMINOPHEN INJECTION 100 ML ONE (08:37)
[2024-05-22] MEDS: morphine CARPU-JECT 4 MG/1 ML DISP.SYRIN IVPUSH ONE (08:56)
[2024-05-22] MEDS: ACETAMINOPHEN 1000 MG/100 ML BAG IVPB ONE (08:56)
[2024-05-22] MEDS: ONDANSETRON 4 MG/2 ML VIAL IVPB ONE (09:36)
[2024-05-22] MEDS ORDERED: ONDANSETRON 4 MG/2 ML VIAL IVPUSH PRN (13:27)
[2024-05-22] MEDS ORDERED: PATIENT'S OWN MEDICATION (NON-FORMULARY) (Eluxadoline [Viberzi] 75 MG Tablet) PO SCH (13:30)
[2024-05-22] MEDS: PANTOPRAZOLE 40 MG TABLET PO SCH (14:45)
[2024-05-22] MEDS: ACETAMINOPHEN 1000 MG/100 ML BAG IVPB PRN (14:45)
[2024-05-22 14:47] VITALS: RESP 18
[2024-05-22] MEDS: oxyCODONE HCL 5 MG TABLET PO PRN (17:22)
[2024-05-22] MEDS: HEPARIN NA (PORCINE) 5,000 UNITS/ML 1ML VIAL SQ SCH (22:19)
[2024-05-23 11:10] LABS: BASO % 0.3 % (0-2.0); EOS % 0.4 % (0-4.5); HEMATOCRIT 31.3 % (32.4-45.2); HEMOGLOBIN 10.3 GM/dL (10.7-15.3); LYMPH % 16.4 % (8-40); MCH 28.8 pg (25.7-33.7); MEAN CELL VOLUME 87.4 fl (80-96); NEUT % 76.9 % (42.8-82.8); PLATELET COUNT 115 10^3/uL (134-434); RBC 3.58 M/mm3 (3.60-5.2); RDW 13.4 % (11.6-15.6); WHITE BLOOD COUNT 5.4 K/mm3 (4.0-10.0)
[2024-05-23 11:39] LABS: CALCIUM 8.8 mg/dL (8.5-10.1)
[2024-05-23 11:40] LABS: BLOOD UREA NITROGEN 5.4 mg/dL (7-18)
[2024-05-23 11:42] LABS: ALBUMIN 3.2 g/dl (3.4-5.0)
[2024-05-23 11:43] LABS: CREATININE 0.7 mg/dL (0.55-1.3)
[2024-05-23 11:44] LABS: BILIRUBIN,TOTAL 0.9 mg/dL (0.2-1)
[2024-05-23 11:45] LABS: TOT PROT 5.8 g/dl (6.4-8.2)
[2024-05-23] MEDS: ACETAMINOPHEN 325 MG TABLET (FP) PO PRN (15:13)
[2024-05-24 03:13] VITALS: TEMP 98.6
[2024-05-24 08:52] VITALS: BP 106/66; PULSE 96
[2024-05-24] MEDS: AZITHROMYCIN 500 MG TABLET PO ONE (09:54)
[2024-05-24] MEDS: diphenhydrAMINE HCL 25 MG CAPSULE (FP) PO ONE (09:54)
[2024-05-24] MEDS: AZITHROMYCIN IVPB 1,000 MG in DEXTROSE 5%-WATER - 250 ML IVPB ONE (09:55)
[2024-05-24] MEDS: HYDROCORTISONE 1% TOPICAL CREAM 30 GM TUBE TP PRN (11:09)
== END 2024-05-24 11:50 | disposition home or self-care (01) ==
LOC: JER 23:04 → UNDOADMOB 05-22 11:51 → JERBED 05-22 11:51 → INTOOBSV 05-22 11:51 → JERBED 05-22 12:56 → J6S 05-22 12:56 → JERBED 05-23 14:12 → J6S 05-23 14:12
PROVIDERS: ADMIT Internal Medicine; ATTEND Nurse Practitioner Acute Care
PROC: 3E033NZ Introduction of Analgesics, Hypnotics, Sedatives into Peripheral Vein, Percutaneous Approach (ICD-10-PCS; principal; 2024-05-23)
PROC: 3E0333Z Introduction of Anti-inflammatory into Peripheral Vein, Percutaneous Approach (ICD-10-PCS; 2024-05-23)
PROC: 3E0337Z Introduction of Electrolytic and Water Balance Substance into Peripheral Vein, Percutaneous Approach (ICD-10-PCS; 2024-05-23)
PROC: 3E033NZ Introduction of Analgesics, Hypnotics, Sedatives into Peripheral Vein, Percutaneous Approach (ICD-10-PCS; 2024-05-23)
PROC: 3E033GC Introduction of Other Therapeutic Substance into Peripheral Vein, Percutaneous Approach (ICD-10-PCS; 2024-05-23)
DX: K58.9 Irritable bowel syndrome, unspecified (principal); R10.9 Unspecified abdominal pain; E80.20 Unspecified porphyria; Z87.42 Personal history of other diseases of the female genital tract; D64.9 Anemia, unspecified; F41.9 Anxiety disorder, unspecified; J45.909 Unspecified asthma, uncomplicated; N89.8 Other specified noninflammatory disorders of vagina; N28.89 Other specified disorders of kidney and ureter; Z87.442 Personal history of urinary calculi; D12.6 Benign neoplasm of colon, unspecified
CPT/HCPCS: 36415; 74177-TC; 76705-TC; 76830-TC; 80053; 81003; 83605; 83690; 83735; 84703; 85025; 85610; 85730; 86850; 86900; 86901; 87086; 87491; 87591; 87661; 93005; 93010; 96374; 96375; 96376; 99285-25; G0378; J0131; J1644; Q9967

== ENCOUNTER 2024-08-09 05:24 | Day surgery (SDC) | payer OTHER ==
[2024-08-06 11:48] VITALS: BMI 19.7
[2024-08-09] MEDS ORDERED: oxyCODONE HCL 5 MG TABLET PO PRN (09:08)
[2024-08-09] MEDS ORDERED: LACTATED RINGERS SOLUTION 1,000 ML IV SCH (09:15)
[2024-08-09] MEDS ORDERED: PROPOFOL 20 ML ONE (12:08)
[2024-08-09] MEDS ORDERED: MIDAZOLAM HCL 2 MG/2 ML SINGLE DOSE VIAL ONE (12:08)
[2024-08-09] MEDS ORDERED: DEXAMETHASONE SOD PHOSPHATE 4 MG/1 ML VIAL ONE (12:09)
[2024-08-09] MEDS ORDERED: KETOROLAC TROMETHAMINE 30 MG/1 ML VIAL ONE (12:09)
[2024-08-09] MEDS ORDERED: LIDOCAINE HCL/PF 2% SDV 5ML VIAL ONE (12:09)
[2024-08-09] MEDS ORDERED: SEVOFLURANE 250 ML BTL ONE (12:09)
[2024-08-09] MEDS ORDERED: ONDANSETRON 4 MG/2 ML VIAL ONE ×3 (12:09→15:35)
[2024-08-09] MEDS ORDERED: CLINDAMYCIN PHOSPHATE 600 MG/4 ML VIAL ONE (12:51)
[2024-08-09] MEDS: CLINDAMYCIN 600 MG PREMIX BAG IVPB ONE ×2 (12:51)
[2024-08-09] MEDS: ONDANSETRON 4 MG/2 ML VIAL IVPUSH PRN (15:00)
[2024-08-09 15:17] VITALS: BP 102/69; PULSE 77; RESP 16; TEMP 97.8
== END 2024-08-09 17:55 | disposition home or self-care (01) ==
LOC: JASU-SURG 05:24
PROVIDERS: ATTEND Obstetrics & Gynecology
PROC: 0UDB8ZX Extraction of Endometrium, Via Natural or Artificial Opening Endoscopic, Diagnostic (ICD-10-PCS; principal; 2024-08-09 11:00)
DX: N92.0 Excessive and frequent menstruation with regular cycle (principal)
CPT/HCPCS: 81025; 88305-TC; 94760